=== PATIENT | male | born 1970 | race Caucasian/White ===

== ENCOUNTER 2024-01-17 15:44 | Emergency (ER) | payer MEDICARE, OTHER, SELFPAY ==
--- NOTE | ~2024-01-17 | CT_ITS ---
EXAMINATION: CT cervical spine wo con DATE: 01/17/2024 17:55 INDICATION: Neck pain TECHNIQUE: Computed tomography (CT) of the cervical spine was performed without intravenous contrast. The dose-length product (DLP) was 507.15 mGy-cm. Automated exposure control and iterative reconstruc tion technique were employed. COMPARISON: None FINDINGS: There are changes of anterior fusion at C3-4. Bone alignment is normal. There is no fractur e. There is mild loss of intervertebral disc space height at C5-6 and C6-7. The odontoid process is i ntact. There is multilevel mild facet and uncovertebral joint osteoarthritis. Prevertebral soft tissu es are normal. IMPRESSION: 1. Surgical changes and mild cervical spondylosis without acute findings. Reviewed, dictated and finalized at location F.
--- NOTE | ~2024-01-17 | XR_ITS ---
XR chest 2V 01/17/2024 16:10 Indication: Chest pain Procedure: 2 view chest Comparison: 04/19/2018 Findings: Heart size normal. No focal air space disease, pulmonary edema, pleural effusion or suspect ed pneumothorax. There are innumerable calcified granulomas of the lungs. Impression: 1: No acute cardiopulmonary disease. Reviewed, dictated and finalized at location B. Impression: 1: No acute cardiopulmonary disease.
--- NOTE | 2024-01-17 15:45 | ECG_ITS ---
Measurements Intervals [place] Rate: 95 P: 85 MS: 142 QRS: 77 QRSD: 93 T: 78 QT: 313 QTc: 395 Interpretive Statements SINUS RHYTHM INCOMPLETE RIGHT BUNDLE BRANCH BLOCK NONSPECIFIC ST & T-WAVE ABNORMALITY- DIFFUSE LEADS BASELINE ARTIFACT- I, II, III, AVR, AVL, AVF, V1, V3 BORDERLINE ECG NO PREVIOUS ECG AVAILABLE FOR COMPARISON Electronically Signed On 01-17-2024 16:57:39 CDT by Byron Schwab D.O.
[2024-01-17 15:46] VITALS: BP 136/90; PULSE 97; RESP 18; TEMP 36.4; O2SAT 99
[2024-01-17 16:06] LABS: Hematocrit 42.8 % (42.0-52.0); Hemoglobin 14.3 g/dL (14.0-18.0); Mean Corpuscular HGB Conc 33.4 g/dl (32-36); Mean Corpuscular Hemoglobin 31.7 pg (26-34); Mean Corpuscular Volume 94.9 fl (80-100); Mean Platelet Volume 12.7 fl (7.4-10.4); Platelet Count Result 178 k/mm3 (150-375); Red Blood Count 4.51 M/mm3 (4.6-6.20); Red Cell Distribution Width 11.8 % (11.5-14.5); White Blood Count 9.8 K/mm3 (4.5-10.0)
[2024-01-17 16:22] LABS: INR 0.9; Prothrombin Time 12.6 Seconds (11.1-14.7)
[2024-01-17 16:23] LABS: Partial Thromboplastin Time 30.7 Seconds (22.3-36.8)
[2024-01-17 16:38] LABS: Band Neutrophils Percent 1 % (0-6); Eosinophils Absolute Manual 0.19 K/mm3 (0.02-0.50); Eosinophils Percent Manual 2 % (0-4); Lymphocytes Absolute Manual 2.84 K/mm3 (1.1-4.5); Monocytes Absolute Manual 0.29 K/mm3 (0.1-0.90); Monocytes Percent Manual 3 % (3-9); Neutrophils Absolute Manual 6.46 K/mm3 (1.3-6.7); Neutrophils Percent Manual 65 % (46-73); Total Cells Counted 100
[2024-01-17 16:39] LABS: Atypical Lymphocytes Present; Platelet Estimate Adequate (Adequate); Schistocytes None Seen
[2024-01-17 17:10] VITALS: PULSE 84
--- NOTE | 2024-01-17 17:24 | ED.CHESTPAIN ---
HPI - Chest Pain General Chief Complaint: Chest Pain <Obi Kenny Cisse III, DO - Last Filed: 01/19/24 12:22> Stated Complaint: chest tightness/pain/L arm numb/dizzy <Obi Kenny Cisse III, DO - Last Filed: 01/19/24 12:22> Time Seen by Provider: 01/17/24 17:16 <Obi Kenny Cisse III, DO - Last Filed: 01/19/24 12:22> History of Present Illness HPI narrative: Pt presents with left sided chest pressure with radiation down left arm constantly since last night. Pt says he has all sorts of issues. Pt says he has an autonomic nervous system disorder and is wheelchair bound because he is unsteady n his feet and feels like he is going ot pass out. Pt has CP frequently he says and usually goes to [facility] for his issues. Pt also complains of chronic neck pain and wonders if the chest pain is related. <Obiowen Cox Cisse III, DO - Last Filed: 01/19/24 12:22> Related Data Allergies/Adverse Reactions: Allergies Allergy/AdvReac Type Severity Reaction Status Date / Time No Known Allergies Allergy Verified 01/17/24 17:11 <Obiowen Cox Cisse III, DO - Last Filed: 01/19/24 12:22> Review of Systems Review of Systems: All systems reviewed & are unremarkable except as noted in HPI and below <Obi Kenny Cisse III, DO - Last Filed: 01/19/24 12:22> Exam Const: General: healthy appearing and no acute distress <Obiowen Cox Cisse III, DO - Last Filed: 01/19/24 12:22> Nutritional Appearance: well nourished <Obi Kenny Cisse III, DO - Last Filed: 01/19/24 12:22> Orientation/consciousness: patient oriented x3 <Obi Kenny Cisse III, DO - Last Filed: 01/19/24 12:22> Limitations: no limitations <Obi Kenny Cisse III, DO - Last Filed: 01/19/24 12:22> HENMT: Head: normal to inspection <Obi Kenny Cisse III, DO - Last Filed: 01/19/24 12:22> Eyes: Pupils: Equal, round and reactive pupils present <Obi Kenny Cisse III, DO - Last Filed: 01/19/24 12:22> EOM: EOMs intact bilaterally <Obi Kenny Cisse III, DO - Last Filed: 01/19/24 12:22> Neck: Neck: normal visual inspection, no lymphadenopathy and no meningeal signs <Obi Kenny Cisse III, DO - Last Filed: 01/19/24 12:22> Other: tender with paraspinous muscle spasm <Obi Kenny Cisse III, DO - Last Filed: 01/19/24 12:22> Resp: Effort & Inspection: normal respiratory effort <Obi Kenny Cisse III, DO - Last Filed: 01/19/24 12:22> Auscultation: clear to auscultation bilaterally <Obi Kenny Cisse III, DO - Last Filed: 01/19/24 12:22> Cardio: Rate: regular rate <Obi Kenny Cisse III, DO - Last Filed: 01/19/24 12:22> Rhythm: regular rhythm <Obi Kenny Cisse III, DO - Last Filed: 01/19/24 12:22> GI: GI Palp: Yes Soft to palpation <Obi Kenny Cisse III, DO - Last Filed: 01/19/24 12:22> Auscultation: normal bowel sounds <Obi Kenny Cisse III, DO - Last Filed: 01/19/24 12:22> Skin: General skin exam: normal color <Obi Kenny Cisse III, DO - Last Filed: 01/19/24 12:22> Rashes: no rashes <Obi Kenny Cisse III, DO - Last Filed: 01/19/24 12:22> Wounds: no wounds <Obi Kenny Cisse III, DO - Last Filed: 01/19/24 12:22> Neuro: General: patient oriented x3, moves all extremities, no focal motor deficits and CN's II-XI intact bilaterally <Obi Kenny Cisse III, DO - Last Filed: 01/19/24 12:22> Speech: normal speech <Obi Kenny Cisse III, DO - Last Filed: 01/19/24 12:22> Extrem: General: normal to inspection and no clubbing, cyanosis or edema <Obi Kenny Cisse III, DO - Last Filed: 01/19/24 12:22> Psych: Mental Status: mental status grossly normal <Obi Kenny Cisse III, DO - Last Filed: 01/19/24 12:22> Affect: normal affect <Obi Kenny Cisse III, DO - Last Filed: 01/19/24 12:22> Attitude: cooperative <Obi Kenny Cisse III, DO - Last Filed: 01/19/24 12:22> Course Vital Signs Vital signs: Vital Signs Temperature 97.6 F 01/17/24 15:46 Pulse Rate 97 01/17/24 15:46 Respiratory Rate 18 01/17/24 15:46 Blood Pressure 136/
[2024-01-17 17:36] LABS: Alanine Aminotransferase 22 U/L (6-50); Albumin Level 4.3 g/dL (3.5-5.1); Alkaline Phosphatase 127 U/L (38-126); Anion Gap 7 mmol/L (8-16); Aspartate Amino Transferase 22 U/L (17-59); Bilirubin,Total 0.7 mg/dL (0.2-1.3); Blood Urea Nitrogen 4 mg/dL (9-20); Calcium 9.6 mg/dL (8.4-10.2); Carbon Dioxide 26 mmol/L (22-30); Chloride 102 mmol/L (98-107); Estimated CRCL calculation 124 ml/min; Estimated Glomerular Filt Rate > 60; Glucose 104 mg/dL (65-110); Lipase 83 U/L (23-300); Potassium 3.8 mmol/L (3.4-5.0); Sodium 135 mmol/L (137-145)
[2024-01-17 17:48] LABS: Troponin I < 0.012 ng/mL (0.000-0.034)
[2024-01-17] MEDS: MORPHINE SULFATE (*CRX) 2 MG/ML INJ IV PUSH (18:02)
[2024-01-17 18:14] VITALS: BP 148/95; PULSE 105; RESP 16; O2SAT 95
[2024-01-17 18:15] VITALS: O2SAT 98
--- NOTE | 2024-01-17 18:55 | ECG_ITS ---
Measurements Intervals [place] Rate: 105 P: 70 [place]: 152 QRS: 53 QRSD: 88 T: 71 QT: 343 QTc: 453 Interpretive Statements SINUS TACHYCARDIA VENTRICULAR PREMATURE COMPLEX POSSIBLE LEFT ATRIAL ENLARGEMENT INCOMPLETE RIGHT BUNDLE BRANCH BLOCK NONSPECIFIC ST & T-WAVE ABNORMALITY- ANT/HIGH LAT LEADS BASELINE ARTIFACT- I, III, AVL BORDERLINE ECG COMPARED TO ECG 01/17/2024 15:49:53 SINUS TACHYCARDIA NOW PRESENT Electronically Signed On 01-17-2024 19:37:19 CDT by Byron Schwab D.O.
[2024-01-17 19:27] LABS: Troponin I < 0.012 ng/mL (0.000-0.034)
[2024-01-17 19:29] VITALS: BP 153/95; PULSE 91; RESP 20; O2SAT 95
== END 2024-01-17 20:43 | disposition home or self-care (01) ==
PROVIDERS: Emergency Medicine; Emergency Provider Emergency Medicine
DX: R07.89 Other chest pain (principal); G90.9 Disorder of the autonomic nervous system, unspecified; Z99.3 Dependence on wheelchair; R00.0 Tachycardia, unspecified; I49.3 Ventricular premature depolarization; R94.31 Abnormal electrocardiogram [ECG] [EKG]; I45.10 Unspecified right bundle-branch block
CPT/HCPCS: 36415; 71046; 72125; 80053; 83690; 84484; 85025; 85610; 85730; 93005; 96374; 99284; J2270

== ENCOUNTER 2025-03-26 03:10 | Emergency (ER) | payer MEDICARE, OTHER, SELFPAY ==
[2025-03-26 03:08] VITALS: PULSE 93; RESP 20; TEMP 36.6; O2SAT 100
[2025-03-26 03:14] VITALS: BP 146/60
--- NOTE | 2025-03-26 03:15 | ECG_ITS ---
Test Date: 2025-03-26 03:18:33 Measurements Intervals [place] Rate: 80 P: 61 [place]: 160 QRS: 48 QRSD: 98 T: 67 QT: 386 QTc: 446 Interpretive Statements SINUS RHYTHM INCOMPLETE RIGHT BUNDLE BRANCH BLOCK MODERATE T-WAVE ABNORMALITY, CONSIDER ANTERIOR ISCHEMIA ABNORMAL ECG No previous ECG available for comparison Electronically Signed On 03-26-2025 06:11:56 CDT by Byron Schwab D.O.
[2025-03-26 03:27] LABS: Basophils Percent Auto 0.4 % (0.2-1.2); Eosinophils Absolute Auto 0.2 K/mm3 (0-0.3); Eosinophils Percent Auto 1.6 % (0-4.4); Hematocrit 42.6 % (42.0-52.0); Immature Granulocyte Absolute 0.02 K/mm3 (0.00-0.031); Immature Granulocyte Percent A 0.2 % (0-0.5); Lymphocytes Absolute Auto 3.18 K/mm3 (0.9-3.2); Lymphocytes Percent Auto 34.4 % (18.3-44.2); Mean Corpuscular HGB Conc 32.9 g/dl (32-36); Mean Corpuscular Hemoglobin 29.9 pg (26-34); Mean Platelet Volume 10.8 fl (7.4-10.4); Monocytes Absolute Auto 0.6 K/mm3 (0.1-0.6); Monocytes Percent Auto 6.6 % (2.6-8.5); Neutrophils Absolute Auto 5.2 K/mm3 (1.3-6.7); Neutrophils Percent Auto 56.8 % (45.5-73.1); Platelet Count Result 227 k/mm3 (150-375); Red Blood Count 4.68 M/mm3 (4.6-6.20); Red Cell Distribution Width 14.3 % (11.5-14.5); White Blood Count 9.2 K/mm3 (4.5-10.0)
[2025-03-26 03:33] LABS: Add Urine Microscopic? NO; Appearance Urine Clear (Clear); Bilirubin Urine Negative (Negative); Blood Urine Negative (Negative); Color Urine Yellow (Yellow); Glucose Urine UA Negative (Negative); Ketones Urine Negative (Negative); Leukocyte Esterase Ur Negative LEU/UL (Negative); Nitrate Urine Negative (Negative); Protein Urine Negative (Negative); Specific Grav Ur 1.003 (1.001-1.035); Urobilinogen Urine 0.2 mg/dL (<2.0); pH Urine 5.5 (5.0-9.0)
[2025-03-26 03:39] LABS: Ethanol 166 mg/dL (<10)
[2025-03-26 03:41] LABS: Alanine Aminotransferase 28 U/L (6-50); Albumin Level 4.7 g/dL (3.5-5.1); Alkaline Phosphatase 112 U/L (38-126); Anion Gap 13 mmol/L (4-12); Aspartate Amino Transferase 27 U/L (17-59); Bilirubin,Total 0.3 mg/dL (0.2-1.3); Blood Urea Nitrogen 5 mg/dL (9-20); Calcium 9.7 mg/dL (8.4-10.2); Carbon Dioxide 23 mmol/L (22-30); Chloride 104 mmol/L (98-107); Estimated CRCL calculation 112 ml/min; Estimated Glomerular Filt Rate > 60; Glucose 120 mg/dL (65-110); Potassium 4.3 mmol/L (3.4-5.0); Sodium 140 mmol/L (137-145)
[2025-03-26 03:50] LABS: Amphetamine Screen Urine Negative (Negative); Barbiturate Screen Urine Negative (Negative); Benzodiazepines Screen Urine Negative (Negative); Cannabinoid Screen Urine Negative (Negative); Cocaine Screen Urine Negative (Negative); Methadone Screen Urine Negative (Negative); Opiate Screen Urine Negative (Negative); Phencyclidine Screen Urine Negative (Negative)
[2025-03-26 04:08] LABS: Influenza A QL RT-PCR Negative (Negative); Influenza B QL RT-PCR Negative (Negative); RSV RNA, RT-PCR Negative (Negative); SARS-CoV-2 RNA PCR Negative (Negative)
[2025-03-26 06:04] VITALS: BP 114/68; PULSE 78; RESP 14; O2SAT 92
--- OUTSIDE RECORDS SUMMARY | 2025-03-26 06:07 | XMS_ITS | Encounter Summary ---
Author Organization [facility] Address [address] [place] [address] Phone Care Team Providers Care Plant Hr Manager Name Role Phone MiniJohnny rhoades MD Unavailable Elian Painting MD Unavailable Geno Sifuentes MD Unavailable Chelsi Quiñonez OT Unavailable Unavailable Charisse Ragland OT Unavailable Unavaila Nadia Bustos OT Unavailable Unavailable Monserrat Murillo OT Unavailable Unavailable Richard Nunez DO Primary Care Provider [phone] Gloria Quiros METAL WASHING MACHINE OPERATOR Unavailable Mariya Blood METAL WASHING MACHINE OPERATOR Unavailable Priyanka Calvillo RN Unavailable [phone] Ellie Nascimento METAL WASHING MACHINE OPERATOR Unavailable Krista Burt LPN Unavailable [phone] Pierre Young MD Unavailable Cesar Plata MD Unavailable Encounter Details Date Type Department Care Team (Late st Contact Info) Description 12/25/2019 Telephone [facility] Scheduling [address] [place] [address] Stormy Olivera Social History Tobacco Use Types Packs/Day Years Used Date Smoking Tobacco: Every Day Cigarettes 1.5 30 Smokeless Tobacco: Never Comments:has been working on quitting- plans on smoking last cigarette 07/11/2019 Alcohol Use Standard Drinks/Week Comments Not Currently 0 (1 standard drink = 0.6 oz pure alcohol) Prior alcohol use, quit December 2017 PHQ-2 Answer Date Recorded PHQ-2 Score 0 11/22/2019 Sex and Gender Information Value Date Recorded Sex Assigned at Not on file Legal Sex Male 8:47 AM MEDICAL ASSEMBLY Gender Identity Not on file Sexual Orientation Straight 10/02/2019 2: 43 PM MEDICAL ASSEMBLY documented as of this encounter Plan of Treatment Scheduled Procedures Name Priority Associated Diagnoses Date/Ti me COLONOSCOPY Open Access Screening for colon cancer documented as of this encounter Visit Diagnoses Not on filedocumented in this encounter Additional Health Concerns Infection Onset Date Last Indicated Resolved Time COVID: Suspected 03/15/2020 03/15/2020 03/17/2020 8:53 AM CDT Respiratory Infection (IDALIA), contact + droplet Comment:Automatically added due to negative COVID-19 result. 03/17/2020 03/17/2020 03/31/2020 3:0 5 AM CDT documented as of this encounter Care Teams Plant Hr Manager Relationship Specialty Start Date End Date Richard Nunez DO [address] [place] [address] PCP - General Family Medicine 11/29/19 Johnny Morse MD [address] [place] [address] Consulting Physician Neurosurgery 08/11/19 Elian Painting MD [address] [place] [address] Consulting Physician Neurology 08/11/19 Geno Sifuentes MD [address] [place] [address] Consulting Physician Physical Medicine and Rehabilitation 08/11/19 Chelsi Quiñonez, OT Occupational Therapist Occupational Therapy 09/05/19 Charisse Ragland, OT Occupational Therapist Occupational Therapy 09/07/19 Nadia Goldman, OT Occupational Therapist Occupational Therapy 09/11/19 Monserrat Murillo, OT Occupational Therapist Occupational Therapy 09/19/19 Gloria Quiros, [facility] [address] [place] [address] Axle Bearing Polisher 03/01/20 03/05/20 Mariya Blood, [facility] [address] [place] [address] Axle Bearing Polisher 01/01/21 01/06/21 Priyanka Calvillo, RN [address] [place] [address] Security Advisor 01/01/21 06/25/21 Ellie Nascimento, [facility] [address] [place] [address] Axle Bearing Polisher 01/07/21 02/16/21 Krista Burt, NEWS OPERATIONS MANAGER [address] [place] [address] [address] [place] [address] Security Advisor 01/21/24 01/23/24 Pierre Young MD [address] [address] Consulting Physician Cardiology 10/12/24 Cesar Plata MD [facility] [facility] [facility] [address] [place] [address] Consulting Physician Pain Management 01/09/25 documented as of this encounter
--- OUTSIDE RECORDS SUMMARY | 2025-03-26 06:07 | XMS_ITS | Encounter Summary ---
Author Organization [facility] Address [address] [place] [address] Care Team Providers Care Kosher Sealer Name Role Phone Luis Downey MD Primary Care Provider No, Physician Primary Care Provider [phone] [facility] Care P rovider Naomie Blackwood NP Primary Care Provider [phone] Johnny Morse MD Unavailable Elian Painting MD Unavailable Geno Sifuentes MD Unavailable [phone] Chelsi Quiñonez OT Unavailable Unavailable Charisse Ragland OT Unavailable UnavailNadia Alcantar OT Unavailable Unavailable Monserrat Murillo OT Unavailable Unavailable Richard Nunez DO Primary Care Provider [phone] Gloria Quiros SERVICE CENTER COORDINATOR Unavailable [phone] Mariya Blood SERVICE CENTER COORDINATOR Unavailable [phone] Priyanka Calvillo RN Unavailable Ellie Nascimento SERVICE CENTER COORDINATOR Unavailable Krista Burt LPN Unavailable [phone] Pierre Young MD Unavailable Cesar Plata MD Unavailable Encounter Details Date Type Department Care Team (Late st Contact Info) Description 06/18/2018 Documentation [facility] Case Management [address] [place] [address] Jigna Horvath Social History Tobacco Use Types Packs/Day Years Used Date Smoking Tobacco: Every Day Cigarettes 0.3 30 Smokeless Tobacco: Never Sex and Gender Information Value Date Recorded Sex Assigned at Not on file Legal Sex Male 8:47 AM CLINICAL ADVISOR Gender Identity Not on file Sexual Orientation Straight 10/02/2019 2: 43 PM CLINICAL ADVISOR documented as of this encounter Miscellaneous Notes * Plan of Care - Jigna Horvath, RN - 06/18/2018 3:37 PM CDT Referral received. Patient contacted. [facility] will begin upon patient discharge. Thank you. [facility] [phone]. documented in this encounter Plan of Treatment Scheduled Procedures [...] documented as of this encounter Care Teams Kosher Sealer Relationship Specialty Start Date End Date Luis Downey MD PCP - General 01/15/18 07/19/18 No, Physician PCP - General 07/20/18 05/09/19 [facility], Sabino Haines MD [address] [place] [address] PCP - General 05/10/19 07/10/19 Naomie Blackwood, ANNET[address] [place] [address] PCP - General 07/11/19 11/28/19 Richard Nunez DO [address] [place] [address] PCP - General Family Medicine 11/29/19 Johnny Morse MD [address] [place] [address] Consulting Physician Neurosurgery 08/11/19 Elian Painting MD [address] [place] [address] Consulting Physician Neurology 08/11/19 Geno Sifuentes MD [address] [place] [address] Consulting Physician Physical Medicine and Rehabilitation 08/11/19 Chelsi Quiñonez, OT Occupational Therapist Occupational Therapy 09/05/19 Charisse Ragland, OT Occupational Therapist Occupational Therapy 09/07/19 Nadia Goldman, OT Occupational Therapist Occupational Therapy 09/11/19 Monserrat Murillo, OT Occupational Therapist Occupational Therapy 09/19/19 Gloria Quiros, SERVICE CENTER COORDINATOR [address] [place] [address] Delicatessen Department Manager 03/01/20 03/05/20 Mariya Blood, SERVICE CENTER COORDINATOR [address] [place] [address] Delicatessen Department Manager 01/01/21 01/06/21 Priyanka Calvillo, RN [address] [place] [address] Forestry Adviser 01/01/21 06/25/21 Ellie Nascimento, [place] [address] [place] [address] Delicatessen Department Manager 01/07/21 02/16/21 Krista Burt LPN [address] [place] [address] Forestry Adviser 01/21/24 01/23/24 Pierre Young MD [address] [facility] [address] [place] [address] Consulting Physician Cardiology 10/12/24 Cesar Plata MD [address] [facility] [address] [place] [address] Consulting Physician Pain Management 01/09/25 documented as of this encounter
--- OUTSIDE RECORDS SUMMARY | 2025-03-26 06:08 | XMS_ITS | Encounter Summary ---
Author Organization [facility] Address [address] [place] [address] Care Team Providers Care Attic Fans Mechanic Name Role Phone MiniJohnny MD Unavailable Elian Painting MD Unavailable [phone] Geno Sifuentes MD Unavailable [phone] Chelsi Quiñonez OT Unavailable Unavailable Charisse Ragland OT Unavailable Unavaila Nadia Bustos OT Unavailable Unavailable Monserrat Murillo OT Unavailable Unavailable Richard Nunez DO Primary Care Provider [phone] Pierre Young MD Unavailable Cesar Plata MD Unavailable Encounter Details Date Type Department Care Team (Late st Contact Info) Description 02/24/2024 Telephone [facility] Cardiology [address] [place] [address] Pierre Young MD [address] [facility] [address] [place] [id number] Social History Tobacco Use Types Packs/Day Years Used Date Smoking Tobacco: Every Day Cigarettes 0.8 15.1 Smokeless Tobacco: Never Comments:has been working on quitting- plans on smoking last cigarette 07/11/2019 Alcohol Use Standard Drinks/Week Comments Not Currently 0 (1 standard drink = 0.6 oz pure alcohol) Prior alcohol use, quit December 2017 Social Connection and Isolat ion Panel [NHANES] Answer Date Recorded In a typical week, how many times do you talk on the phone with family, friends, or neighbors? More than three times a week 01/23/2021 How often do you get togethe r with friends or relatives? More than three times a week 01/23/2021 How often do you attend chur ch or hoahaoism services? Never 01/23/2021 Do you belong to any clubs o r organizations such as denominational groups, unions, fraternal or athletic groups, or school groups? No 01/23/2021 How often do you attend meet ings of the clubs or organizations you belong to? Never 01/23/2021 Are you , , di vorced, , never , or living with a partner? Living with partner 01/23/2021 AUDIT-C Answer Date Recorded Q1: How often do you have a drink containing alcohol? Never 02/07/2025 Q2: How many drinks containi ng alcohol do you have on a typical day when you are drinking? Patient does not drink Q3: How often do you have si x or more drinks on one occasion? Never 02/07/2025 PHQ-2 Answer Date Recorded PHQ-2 Total Score (If total score is 3 or more points, staff should administer the PHQ-9) 6 09/10/2024 Hunger Vital Sign Answer Date Recorded Within the past 12 months, y ou worried that your food would run out before you got the money to buy more. Never true 01/24/20 21 Within the past 12 months, t he food you bought just didn't last and you didn't have money to get more. Never true 01/23/2021 Housing Stability Vital Sign Answer Brock e Recorded In the last 12 months, was t here a time when you were not able to pay the mortgage or rent on time? No 01/23/2021 Number of Places Lived in the Last Year Not on f ile 01/23/2021 In the last 12 months, was t here a time when you did not have a steady place to sleep or slept in a long term (including now)? No 01/23/2021 PHQ-9 Answer Date Recorded PHQ-9 Total Score 21 09/10/2024 Personal Safety Answer Date Recorded Have you ever been in or are you currently in a harmful physical or emotional relationship or is someone making you feel afraid or unsafe? Denies 02/25/2024 Sex and Gender Information Value Date Recorded Sex Assigned at Not on file Legal Sex Male 8:47 AM COMPOSITE ENGINEER Gender Identity Not on file Sexual Orientation Straight 10/02/2019 2: 43 PM COMPOSITE ENGINEER documented as of this encounter Functional Status * Audit-C Score Answer Date of Assessment Author 0 02/07/2025 9:58 AM Brady Mays RN * Question Answer Date of Assessment Author Q1: How often do you have a drink containing alcohol? Never 02/07/2025 9:58 AM Maria Antonia Mays RN Q2: How many drinks containing alcohol do you have on a typical day when you are drinking? Patient does not drink 02/07/2025 9:58 AM Maria Antonia Mays RN Q3: How often do you have six or more drinks on one occasion? Never 02/07/2025 9:58 AM Maria Antonia Mays RN documented as of this encounter Plan of Treatment Scheduled Procedures Name Priority Associated Diagnoses Date/Ti me COLONOSCOPY Open Access Screening for colon cancer documented as of this encounter Visit Diagnoses Not on filedocumented in this encounter Care Teams Attic Fans Mechanic Relationship Specialty Start Date End Date Richard Nunez DO [address] [place] [address] PCP - General Family Medicine 11/29/19 Johnny Morse MD [address] [place] [address] Consulting Physician Neurosurgery 08/11/19 Elian Painting MD [address] [place] [address] Consulting Physician Neurology 08/11/19 Geno Sifuentes MD [address] [place] [address] Consulting Physician Physical Medicine and Rehabilitation 08/11/19 Chelsi Quiñonez, OT Occupational Therapist Occupational Therapy 09/05/19 Charisse Ragland, OT Occupational Therapist Occupational Therapy 09/07/19 Nadia Goldman, OT Occupational Therapist Occupational Therapy 09/11/19 Monserrat Murillo, OT Occupational Therapist Occupational Therapy 09/19/19 Pierre Young MD [address] [place] [address] Consulting Physician Cardiology 10/12/24 Cesar Plata MD [address] [address] Consulting Physician Pain Management 01/09/25 documented as of this encounter
--- OUTSIDE RECORDS SUMMARY | 2025-03-26 06:08 | XMS_ITS | Encounter Summary ---
Author Organization [facility] Healthcare Address [address] [place] [address] Care Team Providers Care Cook Helper Name Role Phone MiniJohnny MD Unavailable [phone] Elian Painting MD Unavailable Geno Sifuentes MD Unavailable [phone] Chelsi Quiñonez OT Unavailable Unavailable Charisse Ragland OT Unavailable Unavaila Nadia Bustos OT Unavailable Unavailable Monserrat Murillo OT Unavailable Unavailable Richard Nunez DO Primary Care Provider [phone] Pierre Young MD Unavailable Cesar Plata MD Unavailable Encounter Details Date Type Department Care Team (Late st Contact Info) Description 01/25/2025 Results Follow-Up [facility] Primary Care at [facility] [address] [place] [address] Jessa Kern DNP [address] [facility] [address] [place] [address] PTH Social History Tobacco Use Types Packs/Day Years Used Date Smoking Tobacco: Every Day Cigarettes 0.5 15.1 Smokeless Tobacco: Never Comments:has been working [...] often do you attend chur ch or yazdanism services? Never 01/23/2021 Do you belong to any clubs o r organizations such as moravian groups, unions, fraternal or athletic groups, or school groups? No 01/23/2021 How often do you attend meet ings of the clubs or organizations you belong to? Never 01/23/2021 Are you , , di vorced, , never , or living with a partner? Living with partner 01/23/2021 AUDIT-C Answer Date Recorded Q1: How often do you have a drink containing alcohol? Never 01/17/2025 Q2: How many drinks containi ng alcohol do you have on a typical day when you are drinking? Patient does not drink Q3: How often do you have si x or more drinks on one occasion? Never 01/17/2025 PHQ-2 Answer Date Recorded PHQ-2 Total Score [...] place to sleep or slept in a prison (including now)? No 01/23/2021 PHQ-9 Answer Date Recorded PHQ-9 Total Score 21 09/10/2024 Personal Safety Answer Date Recorded Have you ever been in or are you currently in a harmful physical or emotional relationship or is someone making you feel afraid or unsafe? Denies 02/25/2024 Sex and Gender Information Value Date Recorded Sex Assigned at Not on file Legal Sex Male 8:47 AM [employer] Gender Identity Not on file Sexual Orientation Straight 10/02/2019 2: 43 PM [employer] documented as of this encounter Plan of Treatment Scheduled Procedures Name Priority Associated Diagnoses Date/Ti me COLONOSCOPY Open Access Screening for colon cancer documented as of this encounter Visit Diagnoses Not on filedocumented in this encounter Care Teams Cook Helper Relationship Specialty Start Date End Date Richard Nunez DO [address] [facility] [address] [place] [address] PCP - General Family Medicine 11/29/19 Johnny Morse MD [address] [facility] [address] [place] [address] Consulting Physician Neurosurgery 08/11/19 Elian Painting MD [address] [facility] [address] [place] [address] Consulting Physician Neurology 08/11/19 Geno Sifuentes MD [address] [facility] [address] [place] [address] Consulting Physician Physical Medicine and Rehabilitation 08/11/19 Chelsi Quiñonez, OT Occupational Therapist Occupational Therapy 09/05/19 Charisse Ragland, OT Occupational Therapist Occupational Therapy 09/07/19 Nadia Goldman, OT Occupational Therapist Occupational Therapy 09/11/19 Monserrat Murillo, OT Occupational Therapist Occupational Therapy 09/19/19 Pierre Young MD [address] [facility] [address] [place] [address] Consulting Physician Cardiology 10/12/24 Cesar Plata MD [address] [address] [place] [id number] Consulting Physician Pain Management 01/09/25 documented as of this encounter
--- OUTSIDE RECORDS SUMMARY | 2025-03-26 06:08 | XMS_ITS | Clinical Summary ---
Author Organization [facility] Address [facility] access [address] [place] [address] Care Team Providers Care Process Treater Name Role Phone MiniJohnny MD Unavailable Elian Painting MD Unavailable Geno Sifuentes MD Unavailable [phone] Chelsi Quiñonez OT Unavailable Unavailable Charisse Ragland OT Unavailable Unavaila Nadia Bustos OT Unavailable Unavailable Monserrat Murillo OT Unavailable Unavailable Richard Nunez DO Primary Care Provider [phone] Pierre Young MD Unavailable Cesar Plata MD Unavailable Allergies Active Allergy Reactions Criticality Noted Date Comments Amitriptyline Other (See comments) Medium 06/17/2020 Doxycycline Stomach upset Low 06/17/2020 Medications cyanocobalamin (Vitamin B-12) 1,000 mcg tabletIndicatio ns:Prevention of Vitamin B12 Deficiency Take 1 tablet (1,000 mcg total) by mouth daily 30 tablet 08/11/20 19 Active fluticasone propionate (FLONASE) 50 mcg/actuation nasal spray Administer 2 sprays into each nostril daily 16 g 5 02/16/20 24 Active aspirin 81 mg enteric coated tablet Take 1 tablet (81 mg total) by mouth daily 30 tablet 11 02/23/20 24 Active acetaminophen 500 mg capsule Take 2 capsules (1,000 mg total) by mouth every 6 (six) hours as needed for mild pain (pain scale 1-4) Active loratadine-pseu doephedrine (CLARITIN-D 24-hour) 10-240 mg per 24 hr tablet Take 1 tablet by mouth daily 30 tablet 11 08/17/20 24 025 Active clopidogreL (PLAVIX) 75 mg tablet TAKE 1 TABLET BY MOUTH DAILY 90 tablet 1 10/09/20 24 Active tiotropium (SPIRIVA) 18 mcg per inhalation capsule Place 1 puff (1 capsule total) into inhaler and inhale daily 90 capsule 3 12/18/19 25 026 Active budesonide-form oteroL (SYMBICORT) 160-4.5 mcg/actuation inhaler Inhale 2 puffs 2 (two) times a day Rinse mouth with water after use. Do not swallow. 1 each 12/18/19 25 Active metoprolol XL (TOPROL-XL) 50 mg extended release tablet TAKE 1 TABLET EVERY DAY 90 tablet 1 01/12/[address] (CYMBALTA) 20 mg capsuleIndicati ons:Recurrent major depressive disorder, in partial remission TAKE 4 CAPSULES EVERY NIGHT 360 capsule 1 01/12/[address] (PROTONIX) 40 mg EC tabletIndicatio ns:Gastroesopha geal reflux disease without esophagitis TAKE 1 TABLET (40 MG TOTAL) BY MOUTH DAILY 100 tablet 3 03/01/20 25 025 Active atorvastatin (LIPITOR) 40 mg tablet Take 1 tablet (40 mg total) by mouth daily 90 tablet 1 03/02/20 25 Active atorvastatin (LIPITOR) 40 mg tablet Take 1 tablet (40 mg total) by mouth daily 30 tablet 11 02/23/[address] (PROTONIX) 40 mg EC tabletIndicatio ns:Gastroesopha geal reflux disease without esophagitis Take 1 tablet (40 mg total) by mouth daily 90 tablet 1 09/15/20 24 025 Discontinued Active Problems Problem Noted Date Diagnosed Date Screening for colon cancer 09/15/2024 Cervical stenosis of spine 07/24/2024 Assessment & Plan (07/26/2024 10:09 AM CDT): 07/18: S/P cervical fusion at C3/4. Last MRI showed : Residual cervical spondylosis superimposed on a congenitally narrow cervical spinal canal resulting in up to moderate spinal canal stenosis at C3-C4 and severe right neuroforaminal narrowing at C4-C5.moderate canal stenosis in cervical spine. Will refer to pain management (Ismael) and back to neurosurgery (Dr. Murray) Requesting scooter to assist with ADLs - has wheelchair due to his weakness hard to roll himself. He is not stable enough to use a walker or cane. Does have enough hand strength to use a scooter control. Is able to sit upright for hours at a time. Coronary artery disease invo lving burns [place] coronary artery of [place] heart with unstable angina pectoris 02/23/2024 Gastroesophageal reflux disease without esophagi tis 01/12/2023 Assessment & Plan (01/12/2023 9:00 PM CDT): Continue with current medication, discussed lifestyle modifications Parathyroid abnormality 01/06/2022 Assessment & Plan (01/12/2023 9:01 PM CDT): Recheck parathyroid hormone Obstructive sleep apnea 01/06/2022 Assessment & Plan (01/06/2022 3:59 PM CDT): He [facility] with [facility] the [place] [facility]. I do not recommend using recalled machine. Referred patient to sleep medicine at [facility] to obtain replacement machine. Family history of colon cancer 01/06/2022 Assessment & Plan (01/12/2023 9:00 PM CDT): Father previously diagnosed with colon cancer, sister with rectal cancer. Needs colonoscopy, order placed Assessment & Plan (01/06/2022 3:59 PM CDT): Father with colon cancer twice and sister currently with bladder and colon cancer. Patient has not had colon screening. Cologuard ordered for patient. COPD (chronic obstructive pulmonary disease) 06/2021 Assessment & Plan (01/28/2024 8:28 AM CDT): Pt requesting Spiriva as it worked better for him in the past than the symbicort for his COPD symptoms - sent Assessment & Plan (12/14/2022 8:58 PM COMMUNITY OUTREACH SPECIALIST): Overall symptoms are minimal. Continue with current therapy Assessment & Plan (01/06/2022 3:49 PM CDT): Mild emphysematous changes noted on CT chest December 2019. Symbicort 2 puffs BID. Had normal PFT and was evaluated by Dr. Corrales. Was recommended to quit smoking. Assessment & Plan (04/02/2021 1:00 PM CDT): Mild emphysematous changes noted on old CT chest from December of 2019. Has chronic shortness of breath. Activity is limited due to this and from postural tachycardia syndrome. He is following with Dr. Corrales of pulmonology and will have PFT and TTE. POTS (postural orthostatic tachycardia syndrome) 04/02/2021 Assessment & Plan (01/27/2024 3:48 PM CDT): Previously treated through Dr. Cox - did not have good experience Assessment & Plan (01/06/2022 3:56 PM CDT): Severe POTS. Follows with Dr. Cox and was started on fludrocortisone 0.1mg in May of 2021 with minimal improvement. Also on midodrine for BP support at 5mg TID. Blood pressure is stable. Patient complaints of palpitations, inability to control body temperature, erratic bowel pattern with fluctuation from constipation to incontience. He is using compression stockings and staying hydrated, having adequate amt of salt. Discussed that treatment of POTS is supportive. Recommend increase on metoprolol from 25mg to 50mg daily. Follow up in six weeks. Monitor BP. If BP becomes too low with this change but palpitations improve, could adjust midodrine. In past we discussed getting a hospital bed so he could adjust his HOB as needed for dizziness. He told me to wait on putting the order in as he does not have enough help right now and he'll let me know if he changes his mind about it. Assessment & Plan (04/02/2021 1:11 PM CDT): Symptoms are severe. Does not tolerate walking even a couple of feet. He is noticing muscle atrophy from not moving around as much. He feels frustrated that he is always sick, feels dizzy, and has heart racing spells. I recommend he complete outpatient physical therapy such as intensive outpatient therapy day program with vital sign monitoring to try and build his activity tolerance. Additionally, due to severe POTS, I recommend patient have a semi electric hospital bed. He requires HOB to be higher than 30 degrees and easy change of the position of HOB. He is not able to achieve level of comfort or to improve his dizziness in current bed. He also requires a hospital bed as he needs to transfer from a wheelchair into the bed. Low serum cortisol level 04/25/2020 Assessment & Plan (05/15/2020 4:50 PM CDT): -his serum cortisol level was low while taking prednisone. -cortisol level has improved to 8.9 off of prednisone. -he reports dizziness, episodes of intermittent low blood pressure. No other symptoms of adrenal insufficiency. -recommend checking a.m. cortisol one more time to make sure his levels are within normal limits. -if his a.m. cortisol is within normal limits, do not recommend corticosteroid replacement. -he is on amlodipine 2.5 mg oral daily consider stopping if his blood pressure is on the lower side. Assessment & Plan (04/25/2020 8:56 PM CDT): Patient with a remarkably low cortisol level. Uncertain of the exact relevance of this particular piece of data as patient has been on a prolonged steroid taper, this could certainly be iatrogenic, but would not expected to be this dramatic. Patient is to finish his prolonged steroid taper, last dose will be next Wednesday. I recommend 1 week after that repeating his cortisol level, will also get renewed, aldosterone and ACTH level. If cortisol is persistently low will also than order a ACTH stim test. Discussed with patient the clinical implications of this test today, certainly could be that his symptoms are related to adrenal insufficiency which would explain why with steroids he feels remarkably better, has better energy in his blood pressure is markedly better. I have placed a referral for him to see endocrinology, suspect that he will not be able to get in until after of completed further testing. In any case if he gets in sooner that is ideal. Patient was given very strict return precautions. He verbalized understanding. Vitamin B12 deficiency 01/03/2020 Assessment & Plan (01/12/2023 9:01 PM CDT): Continue supplement, recheck B12 of Assessment & Plan (01/03/2020 1:50 PM CDT): History of B12 deficiency and formerly on B12 injections. Recommend checking B12 injections and if again low, will restart with once monthly injections. He is taking oral B12. Cervicalgia 11/22/2019 Overview (01/28/2024): 01/14: MRI: IMPRESSION: 1. Postoperative changes of ACDF at C3-C4. The integrity of the hardware is not well assessed on MRI. 2. Residual cervical spondylosis superimposed on a congenitally narrow cervical spinal canal resulting in up to moderate spinal canal stenosis at C3-C4 and severe right neuroforaminal narrowing at C4-C5. Aside from progression of degenerative disc disease at C4-C5 and C6-C7, the overall constellation of spondylotic findings is similar to the prior exam of 12/22/2019. 02/15: Today reports severe pain down the left arm and into the chest. Was incont of urine prior to ER visit - not currently. Did have a fall in the last year. CT in ER did not show new changes. Assessment & Plan (07/24/2024 11:46 AM CDT): Today reports has been using a neck brace and would like a scooter to help him get around. Not stable enough to use a walker. Reports tightening in the upper back and neck. Will try muscle relaxer. Refer to pain management. Zip: [id number] - wants to find someone closer to home. Assessment & Plan (02/11/2024 1:34 PM CDT): Longstanding issues with cervicalgia, most recent CT scan is not dramatically different than previous. Doubtful that this is contributing significantly to his symptoms but certainly could be part of the multifactorial process. Okay to use Tylenol. I do recommend discontinuation of gabapentin as this has likely exacerbated some of his autonomic symptoms Assessment & Plan (01/28/2024 8:28 AM CDT): Ongoing - consider updated MRI after cardiac evaluation Assessment & Plan (01/12/2023 8:58 PM CDT): Known diagnosis, status post previous anterior cervical fusion, has worsening lower extremity weakness, upper extremity weakness. Worsening pain. Patient requesting 2nd opinion, referral placed to neuro surgery/Ortho Spine. Assessment & Plan (12/14/2022 8:57 PM COMMUNITY OUTREACH SPECIALIST): Patient with known severe cervical spinal stenosis status post previous surgical intervention. Continues to have symptoms of weakness and numbness/tingling in bilateral upper and lower extremities, last MRI in 2019. Will get x-rays today, repeat MRI ordered. Further plan pending results. Suspect that some degree of autonomic dysfunction may be related to his severe spinal canal stenosis Assessment & Plan (02/17/2022 12:18 PM CDT): C spine surgery [address] Murray and abnormal MRI even after surgery. Repeat surgery was not recommended by Dr. Murray. Patient has left posterior neck pain and L shoulder pain. He can use as needed tylenol or Aleve once daily. Can do topical voltaren gel or Icy Hot. We discussed using gabapentin but I fear this would increase his fatigue which is already a significant issue. Assessment & Plan (04/02/2021 12:55 PM CDT): Had cervical spine surgery in [address] Murray and abnormal MRI even after surgery. Repeat surgery was not recommended by Dr. Murray. Assessment & Plan (01/01/2021 1:13 PM COMMUNITY OUTREACH SPECIALIST): Cervical spine surgery [address] Murray and had abnormal MRI even after surgery. Repeat procedure was not recommended by Dr. Murray. Assessment & Plan (10/08/2020 10:40 AM COMMUNITY OUTREACH SPECIALIST): June 2019 had cervical spine surgery with Dr. Murray. MRI cervical spine still markedly abnormal after surgery but repeat surgical intervention not recommended by his surgeon. Was recommended to have second opinion with neurosurgery, Dr. Enriquez. Patient waiting to repeat MRI of entire spine prior to seeking second opinion. Assessment & Plan (07/23/2020 2:26 PM CDT): The patient has cervical spine surgery last year. Since now he seems to have muscle spasms through the thorax as a result of the cord injury. I am going to give him baclofen 10 mg b.i.d. to reduce these muscle spasms. We can titrate to effect depending on his tolerance. I will see him back in approximately 3 months. This was a telemedicine visit with Mr. Varela which took place via phone. During the visit, I was located in my office and the patient was located at home. The patient visit started at 2:00 p.m. and ended at 2:26 p.m.. The patient has been informed that the visit may not be secure and acknowledged the information. I have explained the option of participating in a telephone or video visit during the [facility] emergency to the patient. After being given an opportunity to ask questions about and discuss this type of visit, the patient verbally consented to proceeding with the telephone/video visit. The patient understands that this service replaces an office visit and they may be billed and/or responsible for any applicable copayments. @SIGENC2@ @MS@ Assessment & Plan (05/31/2020 4:23 PM CDT): Patient with significant changes noted on his MRI of his C-spine, had surgical intervention and cervical decompression completed in June of last year but his symptoms have worsened. Patient was seen by neuro surgery (Dr. smith) who recommended no further intervention. Patient would like a 2nd opinion I think this is certainly reasonable, he was referred to Dr. Enriquez Assessment & Plan (01/19/2020 1:40 PM CDT): S/p C3-C4 ACD fusion with Dr. Murray 07/24/19. Was improving after surgery but worsened around [place] time. Autonomic symptoms increased and he had more significant L arm weakness. Severe L C3-C4 foraminal stenosis was seen on Nov 2019 cervical MRI. Fredy has sent a message to his neurosurgeon who told him he will discuss the results with him in upcoming months. He mentioned a possible surgery, but Fredy was not exactly sure. Assessment & Plan (01/03/2020 1:49 PM CDT): S/p C3-C4 ACD fusion with Dr. Murray Jul 24, 2019. He'd been doing well after surgery, but felt progress was stalled around [place] time when autonomic symptoms worsened. He's currently unable to stand without support and has significant spasticity with trying to stand. He's on baclofen. Severe L C3-C4 foraminal stenosis was found on Nov 2019 cervical MRI ordered by Dr. Painting. I discussed with Dr. Nunez. Recommend that patient follow up with Dr. Murray and bring copy of prior MRI from [facility]. Assessment & Plan (11/22/2019 10:08 AM COMMUNITY OUTREACH SPECIALIST): Patient with previous noted cervical myelopathy, status post C4/[address] murray in June. Patient was making significant progress in his therapy until mid September when his autonomic symptoms seem to have worsened. He is utilizing wheelchair today, at home utilizes a cane. Continue with physical therapy and occupational therapy, follow-up with [facility] as scheduled. Patient was seen by Neurology and an MRI of the cervical spine was ordered given his right upper extremity weakness, I agree with this plan. Will contact patient with results once available. Memory loss 11/20/2019 Assessment & Plan (11/20/2019 12:20 PM COMMUNITY OUTREACH SPECIALIST): The patient complains of memory loss. I have a feeling that is probably more a concentration/attentional issue. I am going to order neuro psychological testing to be done. I will see him back thereafter. Autonomic dysfunction 11/20/2019 Overview (01/28/2024): 12/14: Worsened on of last week. BP up and down - all other complaints continue - see Dr. Nunez's note from 11/22/19 - CP today. EKG no acute findings. Increased droxidopa to 200 mg TID. 02/15: Today reporting having problems when upright too long - did have a fall last year and wonders if his cervical spinal disease has worsened. Updated CT in ER does not show fracture or problems with existing hardware. Assessment & Plan (07/24/2024 11:44 AM CDT): Gabapentin stopped as it was felt to be making AD worse. States he currently spends more than half of his day in bed as he feels better laying down Assessment & Plan (02/11/2024 1:34 PM CDT): Continues to have issues with significant postural orthostasis/lightheadedness. Patient has previously been seen by multiple different providers and subspecialists, ultimately was following with neuromuscular subspecialists but he has not seen them in quite some time. There was concern about potential CSF leak and they did a blood patch which was not beneficial. I strongly encouraged him to consider following up with Neuromuscular Medicine. He does have a CT coronary angiography scheduled which is very reasonable to assess for potential cardiovascular disease, though his symptoms have been ongoing for quite some time and I suspect is more likely related to his autonomic dysfunction which remains severe. I recommend he discontinue gabapentin as this seems to have exacerbated his symptoms. In truth, it is very difficult to assess this via telemedicine and he is encouraged to make in-person appointments and [place] finding a provider in [place] Assessment & Plan (01/28/2024 8:18 AM CDT): Having problems again when upright too long. Off corticoids. Had a fall last year. CT done in ER shows: 1. No acute fracture within the cervical spine. 2. Solid C3-4 fusion without sign of hardware or fusion failure 3. Multilevel degenerative disc disease with anterolisthesis of C4-C5. No longer working with Dr. Cox. Will discuss with PCP. Compression socks may help Assessment & Plan (12/14/2022 8:57 PM COMMUNITY OUTREACH SPECIALIST): Patient with longstanding issues with autonomic dysfunction, previously seen by a specialist through [facility], has not followed up since May of 2021, he was encouraged to make a follow-up appointment. Is now off of minora corticoids, did not feel that they were particularly beneficial. Certainly possible that his symptoms are at least worsened by his known severe cervical stenosis and previous instrumentation. Will get updated MRI. Return precautions given Assessment & Plan (02/17/2022 12:12 PM CDT): This continues to be the crux of his problems. Trouble with temperature regulation, positional orthostasis, palpitations, nausea. His metoprolol was increased at time of last OV and it did not help. He has seen neuromuscular specialist Dr. Cox at [facility]. He's frustrated by lack of improvement despite different interventions he's tried over the years. He will follow up with neuromuscular PA/[employer] if needed in future. Assessment & Plan (01/01/2021 1:18 PM COMMUNITY OUTREACH SPECIALIST): Since I have met him, Fredy has struggled with his autonomic dysfunction. Has trouble with temperature regulation, orthostasis with position changes, palpitations, and feeling nauseated and flu-like. I have given him zofran for nausea. I recommend he continue the metoprolol as it has been helpful for reducing palpitaions and regulating his HR. I will order him a hospital bed for home so he can use it to gradually adjust position of bed and reduce incidence of orthostatic hypotension. I do recommend he think about doing cardiac rehab so he can improve his activity tolerance and do so in a monitored setting. ACO referral has been placed so he can meet with social worker psychiatric to help him with placement as he needs some additional care. Assessment & Plan (11/17/2020 9:17 PM COMMUNITY OUTREACH SPECIALIST): Patient with known autonomic dysfunction, follows with a specialist (Dr. Cox). Recently started on midodrine, seems to have improved his symptoms a bit, his blood pressure is more stable. Did not Northera due to cost of medication. Patient is scheduled to see autonomic dysfunction specialist next month. Discussed use of benzodiazepines extensively today, would recommend continue with BuSpar and gradually increasing dose with a goal of treating anxiety as patient does seem to have this daily, I do not feel that frequent use of benzodiazepines will help with his symptoms of lightheadedness and fatigue. It may give him some brief respite from anxiety but overall this is a port treatment choice and we should be using something with less addictive potential Assessment & Plan (11/05/2020 10:33 AM COMMUNITY OUTREACH SPECIALIST): The patient is a 49-year-old gentleman with POTS. I have written MRI a prescription for Northera that has now been approved by his insurance company. Unfortunately he has not picked the medication my office filled out a prior authorization and got a covered for 3 months. From August 25 to November 25. As 2 and half of those months have now gone by without him getting the prescription, I encouraged him to move quickly so that we can see if that will improve his functional status. With regard to further treatment of POTS, it may be worthwhile to see cardiology. I will see him back in a few months.. This was a telemedicine visit with Mr. Varela which took place via telephone. During the visit, I was located in my office and the patient was located at home. The patient visit started at 10:15 a.m. and ended at 10:30 a.m.. The patient has been informed that the visit may not be secure and acknowledged the information. I have explained the option of participating in a telephone or video visit during the [facility] emergency to the patient. After being given an opportunity to ask questions about and discuss this type of visit, the patient verbally consented to proceeding with the telephone/video visit. The patient understands that this service replaces an office visit and they may be billed and/or responsible for any applicable copayments. @SIGENC2@ @MS@ Assessment & Plan (10/08/2020 10:37 AM COMMUNITY OUTREACH SPECIALIST): This continues to make him feel poorly. He was taken off of fludrocortisone and started on midodrine 5mg TID. BP is 105 systolic and drops to 90 systolic with exercise. Recommend increase on midodrine to 10mg TID which is maximum dose for midodrine. He can also stop amlodipine which may be lowering pressure some. Follow up in one month. Assessment & Plan (07/23/2020 2:25 PM CDT): The patient is a 49-year-old gentleman with a history of cervical cord injury now with autonomic insufficiency. He has a tilt-table test scheduled in early August and has been evaluated by Dr. Cox. Unfortunately, he has essentially failed fludrocortisone and midodrine. I am going to send back in Northera 200 mg t.i.d. for his labile blood pressures. Assessment & Plan (05/31/2020 4:23 PM CDT): Persistent symptoms, did much better on corticosteroids. Overall uncertain etiology, has appointment with a autonomic specialist later this month. Patient overall did very well on prednisone, but would prefer to keep him off of this long-term, will start him back on fludrocortisone at a lower dose and keep a close watch on his blood pressure. He will also then have more information when he follows up with the autonomic specialist. Assessment & Plan (04/17/2020 10:28 AM CDT): Patient is overall fairly stable at this time. His nausea and vomiting has resolved since being in the ER, abdominal pain has essentially been stable. Abdominal exam is unremarkable at this time. Ultimately his exam with the exception of him feeling very weak is relatively unremarkable, his muscle strength is appropriate. He does have some balance issues but overall if he takes his time is able to move fairly well. Will obtain labs to screen for autoimmunity, Sjogren's, looking at ESR and CRP. If either of these are elevated could consider a course of a steroid taper as this may help with his symptoms. Overall I am glad that he is getting an appointment to see an autonomic dysfunction specialist as would very much like their input. If these labs are completely unremarkable could consider a trial again of fludrocortisone at a lower dose with close monitoring of his blood pressure. Patient verbalized understanding. Assessment & Plan (04/08/2020 10:25 PM CDT): Patient reports persistent symptoms of fatigue and difficulty with motivation. He reports that he has been ambulating around bit but for the most part is using an assisted device either a cane or walker. Continues to have some nausea but feels that his abdominal pain is overall better controlled. He feels like he has some degree of control over his bladder, this is certainly improved on the prednisone. He continues to have significant complaints of nasal congestion which seemed to be a recurring theme during our conversation today. Patient is optimistic about his visit with autonomic dysfunction specialist at [facility] and June. He continues on his steroid taper and is overall doing well, will plan to continue this taper to 1 and half tabs once a day for 7 days then 1 tab per day for 7 days followed by half a tab. Would then like to complete evaluation of his baseline cortisol levels, an order has been placed. Will contact patient with results. Depending on how he does off of steroids may consider restarting fludrocortisone at a lower dose than previous with close follow-up. Ultimately I am optimistic regarding his visit with the autonomic specialist. Assessment & Plan (03/22/2020 9:22 AM CDT): Patient is now been on 60 mg of prednisone a day for the last 10 days, overall all of his symptoms have improved to a significant degree, his blood pressure is also much improved. Patient is scheduled to see autonomic nerve dysfunction specialist in June of this year. He is anxious to have this appointment. In discussion with him today we talked a little bit more about his workup that was done a Jefry antunez prior to establishing care with us, it is unclear if he has ever had his cortisol level checks or ever had any workup for adrenal insufficiency. I will reach out to her die cast technician to see about testing for this while on prednisone, but I would like to rule this out given how well he feels on corticosteroids. Assessment & Plan (03/15/2020 10:16 AM CDT): Overall unchanged from previous. Patient started on prednisone per our last discussion on Wednesday afternoon, despite this medication he has had essentially no change in symptoms. Continues to feel weak. The patient plans to follow-up with autonomic dysfunction specialist, he is pending getting set up for an appointment. Consult has been placed, patient will follow-up with them. Will discuss further with patient next Wednesday. Assessment & Plan (01/23/2020 11:05 AM CDT): The patient is a 49-year-old gentleman who has a history of cervical spine stenosis who underwent surgery last year. Later he developed what looks like autonomic instability. He has GI issues along with a neurogenic bladder. He has difficulty ambulating. He has increasing right arm weakness. His cervical spine MRI does not show myelomalacia. We have him scheduled to see Dr. Cox for autonomic nervous system testing in May. I am also going to obtain a brain MRI to make sure were not missing on alternative etiologies such as multiple sclerosis. I will see him back in the summer after the Coronavirus pandemic has resolved. This visit was conducted using an interactive audio communication system. Assessment & Plan (01/19/2020 1:36 PM CDT): Significant autonomic dysfunction secondary to cervical myelopathy. Feels hot and cold and intermittently dizzy and nauseated. He is going to follow up with his neurosurgeon Dr. Murray to discuss MRI results once COVID 19 pandemic is more contained. Continue midodrine 10mg TID. Assessment & Plan (01/03/2020 1:41 PM CDT): Significant autonomic dysfunction related to cervical myelopathy. He's having a hard time tolerating the feeling of nausea constantly, feeling hot and cold and intermittently dizzy. Recommend he follow up with his surgeon to discuss findings of most recent cervical MRI from end of November. Continue with midodrine 10mg TID. BP is stable today between 110-120 systolic by my check. Assessment & Plan (12/13/2019 1:35 PM COMMUNITY OUTREACH SPECIALIST): EKG today: no acute findings. Reached out to Dr. Painting about increasing the dose of droxidopa - Will increase dose to 200 mg three times per day Will get additional lab testing Call Dr. Painting for earlier f/u apt Assessment & Plan (11/22/2019 10:06 AM COMMUNITY OUTREACH SPECIALIST): Patient with multiple symptoms including intermittent sweating, GI dysfunction, intermittent palpitations/bradycardia, labile blood pressure. Agree that this does seem to be related to autonomic dysfunction. Patient was previously on fludrocortisone but had significant hypertension. He was seen by Neurology earlier this week and was started on a dopamine agonist, has been taking for about a day and half. Recommend that he continue with current therapy for now, if not improving with the dopamine agonist could consider other variations of treatment including going back to a low-dose fludrocortisone. Had a long discussion with patient regarding autonomic dysfunction, discussed that it will be frustrating as we continue to work with this to try to find works well for him. He verbalized understanding. In the interim I recommend that he continue to work on physical and occupational therapy. I also recommend that he [facility] of his disability rating Assessment & Plan (11/20/2019 12:19 PM COMMUNITY OUTREACH SPECIALIST): Based on the patient's symptoms I strongly believe that he has autonomic dysfunction likely from the cervical spine issue. As such she has labile blood pressures resulting in presyncope and syncopal episodes. I am going to try the patient on trucks a dopa 100 mg 3 times a day to see if this will reduce those episodes. I have asked of watch his blood pressure closely. We may have to try to decrease that dose if we have too much hypertension as a side effect. Current smoker 05/12/2019 Assessment & Plan (02/17/2022 12:19 PM CDT): Start wellbutrin 75mg daily for one week, then increase to twice daily. This may also help treat anxiety. Can also use nicotine gum to help him quit. Assessment & Plan (01/19/2020 1:37 PM CDT): Smokes 5-6 cigarettes per day. Recommend he work on quitting smoking. Assessment & Plan (11/22/2019 10:08 AM COMMUNITY OUTREACH SPECIALIST): 1/3 to 1/2 pack per day. Has been smoking for about 20 years. Previously quit but with everything this been going on the restarted. Discussed the benefits of cessation and the drawbacks of continued smoking, he verbalized understanding plans to continue at this time. History of alcohol abuse 06/17/2018 Assessment & Plan (01/28/2024 8:29 AM CDT): States he quit drinking again in October 2023 Assessment & Plan (01/01/2021 1:15 PM COMMUNITY OUTREACH SPECIALIST): Alk phos elevated on labs. To recheck LFTs in one month. Assessment & Plan (06/18/2018 8:50 AM CDT): Denies any use since December 2017, but had heavy use prior. -Ethanol level <10.0 -Cessation encouraged. Assessment & Plan (06/17/2018 10:11 AM CDT): Denies any use since December 2017, but had a heavy use prior -Ethanol level <10.0 -Cessation encouraged. Assessment & Plan (06/17/2018 4:23 AM CDT): Denies any use since December 2017, but had a heavy use prior -Ethanol level & UDS pending Depression 06/17/2018 Assessment & Plan (01/06/2022 3:53 PM CDT): Continues on cymbalta 80mg at HS. Continues to be frustrated by lack of improvement in his health. Has not tolerated cymbalta at higher doses in past. Assessment & Plan (01/01/2021 1:19 PM COMMUNITY OUTREACH SPECIALIST): He was unable to tolerate cymbalta at doses higher than 60mg daily. He asked repeatedly for alprazolam but Dr. Nunez and I feel this is dangerous for him to take because it is habit forming and will make him more tired. He can use hydroxyzine 25mg up to twice daily as needed for acute anxiety. Would like him to joint [facility] support group and provided him information on this. Assessment & Plan (10/08/2020 10:42 AM COMMUNITY OUTREACH SPECIALIST): He continues on cymbalta 60mg daily. Still has severe anxiety. Dr. Cox wanted us to talk with Fredy about shorter acting anxiolytic. I will discuss with Dr. Nunez if he would benefit from as needed alprazolam or if we can use something like buspar instead. Assessment & Plan (01/03/2020 1:34 PM CDT): Depression significant. Anxiety also present. Increase cymbalta from 40mg to 60mg daily. Follow up in six weeks. Assessment & Plan (11/22/2019 10:09 AM COMMUNITY OUTREACH SPECIALIST): Chronic issue, seems to be worsening with the worsening of his autonomic symptoms. Continue with Cymbalta. Could consider referral to Psychology though patient is hesitant about this at this time. Return precautions given Assessment & Plan (06/17/2018 10:11 AM CDT): Previously on Mirtazapine and Amitriptyline, but off all medications currently. Denies depressed mood or any SI/HI. -Restart amitriptyline. -Will need outpatient psych follow-up (already established) Assessment & Plan (06/17/2018 4:26 AM CDT): Previously on Mirtazapine and Amitriptyline, but off all medications currently -denies any SI or HI currently -Will need outpatient psych follow-up (already established) Polyneuropathy 01/28/2018 Overview (01/28/2024): 02/15: recent worsening of the left arm - trying gabapentin Assessment & Plan (07/24/2024 11:46 AM CDT): Pain in both arms and down the back. Assessment & Plan (01/27/2024 3:02 PM CDT): Start gabapentin 100 mg three times per day along with Tylenol 1000 mg Multiple head injury 06/07/2017 Asymmetrical sensorineural hearing loss 11/28/19 16 Resolved Problems Problem Noted Date Diagnosed Date Resolved Date Other chest pain 01/28/2024 09/15/2024 Overview (02/22/2024): 02/15: CTA shows: Multifocal areas of coronary artery atherosclerotic disease including severe stenosis in the mid left anterior descending coronary artery and moderate to severe stenosis in the distal right coronary artery. Coronary calcium score of 123 (>90th percentile). Referred to Dr. Yin Screening for malignant neoplasm of colon 01/12/2023 01/12/2023 Overview (01/12/2023): Added automatically from request for surgery [id number] Screening for malignant neoplasm of colon 01/12/2023 02/12/2023 Overview (01/15/2023): Added automatically from request for surgery [id number] Hoarseness of voice 12/14/2022 02/13/20 23 Assessment & Plan (01/12/2023 9:01 PM CDT): Persistent hoarseness, previously given an ENT referral, he has not yet called to schedule an appointment. Symptoms persist. Uncertain of exact etiology. Needs ENT evaluation given chronicity of symptoms Assessment & Plan (12/14/2022 8:58 PM COMMUNITY OUTREACH SPECIALIST): Patient reports that symptoms have been present for more than 6 months, has not been seen for this previously. Symptoms seem to be worsening. Uncertain if this is related to his ongoing issues with cervical spinal stenosis and progression of disease, needs evaluation with ENT and suspect he will need possible nasopharyngoscopy. Further plan pending results. Elevated blood pressure reading 02/17/2022 02/12/2023 Assessment & Plan (02/17/2022 12:20 PM CDT): BP 160-170 today. Historically BP is high, not low. To hold midodrine for foreseeable future. Let me know if BP not improving with holding midodrine. Chronic frontal sinusitis 02/17/2022 Assessment & Plan (02/17/2022 12:21 PM CDT): Patient with chronic sinus symptoms. Improves briefly with antibiotic courses and then symptom resume immediately following them. To continue Flonase, follow up with ENT at [facility] next month as planned. Migrainous dizziness 04/02/2021 024 Overview (04/02/2021): blamed on chemicals and concussions from employment. CSF leak 11/17/2020 09/15/2024 Assessment & Plan (04/02/2021 12:58 PM CDT): Had blood patch procedure earlier this year and it did nto help with headaches but Dr. Cox thought they did not put enough blood in the blood patch. He has an appointment with Dr. Cox next month. He's not sure if he will get another blood patch. Assessment & Plan (01/01/2021 1:13 PM COMMUNITY OUTREACH SPECIALIST): He had one blood patch procedure and it did help with his headaches. Dr. Cox would like him to have another blood patch procedure done and he plans on doing this in near future. Assessment & Plan (11/17/2020 9:18 PM COMMUNITY OUTREACH SPECIALIST): Patient with recent MRI of the cervical, thoracic and lumbar spine, multiple cysts were noted, questionable CSF leak. He is set to see anesthesiology regarding a blood patch. Agree with management plan. Hold off on adjusting any medications pending completion of procedure, hopeful that this will help with his symptoms. BMI 24.0-24.9, adult 10/08/2020 023 Assessment & Plan (02/17/2022 12:10 PM CDT): Healthy weight. He denies recent weight change. Assessment & Plan (01/06/2022 3:47 PM CDT): Healthy weight. Assessment & Plan (04/02/2021 12:55 PM CDT): Healthy weight. Assessment & Plan (01/01/2021 1:09 PM COMMUNITY OUTREACH SPECIALIST): Healthy weight. Assessment & Plan (10/08/2020 8:30 AM COMMUNITY OUTREACH SPECIALIST): Lost weight 10 lbs in past 4 months. Monitor weight. Palpitations 10/08/2020 02/12/2023 Assessment & Plan (01/01/2021 1:15 PM COMMUNITY OUTREACH SPECIALIST): He reports some improvement in palpitations since starting metoprolol, to continue beta elizabeth therapy. Assessment & Plan (10/08/2020 10:43 AM COMMUNITY OUTREACH SPECIALIST): He reports palpitations with activity and sometimes they stop him in his tracks. Ordered 30 day event monitor to get more information on heart rhythm and find out if he's having PVCs. Hypernatremia 05/15/2020 02/12/2023 Assessment & Plan (05/15/2020 10:20 AM CDT): -repeat BMP. -encouraged patient well oral hydration. Cough 03/15/2020 02/12/2023 Assessment & Plan (01/06/2022 3:52 PM CDT): Coughing up colored material and having head and chest congestion daily, eyes crusting in morning. Treat for sinus infection with Augmentin twice daily for 10 days. Recommend evaluation with [facility] for chronic sinus symptoms. wanted him to also be evaluated for vocal cord dysfunction. Assessment & Plan (03/15/2020 10:15 AM CDT): Patient with worsening cough, fever intermittently over the last few days. Seems to be getting worse. Patient does sound congested and was coughing over the phone. I recommend coronavirus testing, a message was placed to the access center COVID - 19 team to schedule a drive up testing. Patient was given strict return precautions. Minimal dyspnea at this time period Hemoptysis 01/19/2020 03/08/2020 Assessment & Plan (01/19/2020 1:43 PM CDT): See shortness of breath. Right upper quadrant pain 01/03/2020 Assessment & Plan (01/19/2020 1:36 PM CDT): He has US of gallbladder scheduled. Assessment & Plan (01/03/2020 1:35 PM CDT): Recommend gallbladder US for RUQ pain and nausea. BMI 24.0-24.9, adult 01/03/2020 020 Assessment & Plan (01/19/2020 1:35 PM CDT): Healthy weight. Assessment & Plan (01/03/2020 1:45 PM CDT): He's been losing weight. Poor appetite and difficulty swallowing. Needs close monitoring. Annual physical exam 01/03/2020 020 Assessment & Plan (01/03/2020 1:49 PM CDT): 49 y/o presents for annual physical. Reviewed labs with him and they were within normal limits except for mildly elevated BG. Will check B12 level as he formerly was on B12 injections. He's having significant autonomic dysfunction. BP is stable on midodrine. Recommend he follow up with his neurosurgeon for reassessment since he's been declining and has abnormal cervical MRI results from Nov 2019. Cymbalta dose adjusted today. Follow up here in six weeks. See Dr. Painting later this month as planned. Right arm weakness 11/20/2019 4 Assessment & Plan (01/03/2020 1:27 PM CDT): R arm became weaker after surgery. He had cervical MRI that shows greatest concern at left C3-C4. Recommend he get prior MRI. Make an OV with surgeon Dr. Murray to discuss prior and current MRI findings. Assessment & Plan (11/20/2019 12:21 PM COMMUNITY OUTREACH SPECIALIST): The patient complains of right arm weakness that has gotten worse after the surgery. He also now is complaining of urinary retention. I know that his cervical x-ray is unremarkable and that the alignment has been corrected, but I would like to obtain an MRI to look at the soft tissue to see if this may explain his neurologic deterioration after the decompression. I will order an MRI of the cervical spine to be done and see him back afterward. Abnormal PFT 05/12/2019 01/06/2022 Bradycardia 06/18/2018 02/12/2023 Assessment & Plan (06/18/2018 8:55 AM CDT): Suspect vagal episodes in setting of stress/headaches. 3 episodes of bradycardia to 30s overnight. He was reporting headache at that time, but otherwise was asymptomatic. He has not had any other events. 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 Head CT normal. Neuro exam normal. Labs unrevealing. EEG results pending, but I suspect this will be unrevealing. -Neurology to f/u EEG results and discuss at appt next week. -Will obtain head CT (no prior head imaging in system) and metabolic work-up with TSH, B12, RPR, and UA. 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 Has been diagnosed w/ post-concussive syndrome, but unclear if he has truly had concussions in the past as he never sought medical attention, but self diagnosed. Reports episodes of confusion and then blacking out. Says family has noticed him babbling and not responding at times. He is aware of these episodes and states he looks at his phone until it passes. Other times, he states that he may be doing something, such as looking at his phone and then the next thing he remembers is coming to and his phone is on the floor. Does not fall during these episodes and remains upright. Patient reports worsening over last several months and stopped all his headache medications because he thought they were contributing. Has not seen improvement with cessation of meds. Denie ETOH and ETOH level negative. Head CT negative. CBC and BMP unrevealing. Mg normal. TSH pending. -Although, less likely seizure, will check EEG to r/o -Will obtain head CT (no prior head imaging in system) and metabolic work-up with TSH, B12, RPR, and UA. BMP & CBC completely normal Assessment & Plan (06/17/2018 4:26 AM CDT): Patient reports worsening over last several months and stopped all his headache medications because he thought they were contributing, but has not seen improvement with cessation of meds -Seems to fixate on his memory and repeatedly states that everyone around him has seen a decline -Likely combination of post-concussive syndrome, depression, and prior alcohol abuse -States he has periods of complete blackouts or loss of time but denies any current alcohol use. Ethanol level pending, seizure disorder is another potential source of symptoms -Will obtain head CT (no prior head imaging in system) and metabolic work-up with TSH, B12, RPR, and UA. BMP & CBC completely normal -Basic neuro exam intact and is A&Ox3, can consider MOCA for more formal cognition testing in AM -Consider EEG if symptoms do not improve -Would touch base with outpatient neurologist (Dr. Maloney) about restarting his prior headache medications (on Depakote in the past) Chronic headaches 06/17/2018 03/08/2020 Assessment & Plan (06/18/2018 8:49 AM CDT): Suspect psychogenic. Stopped his depakote and amitriptyline 2 months ago as above. Doesn't want to restart Depakote. -Continue amitriptyline as above. -F/u with Neuro and for further medication management. Assessment & Plan (06/17/2018 10:09 AM CDT): Feels headaches are becoming more frequent. Stopped his depakote and amitriptyline 2 months ago as above. Doesn't want to restart Depakote. -Restart amitriptyline as above. -F/u with Neuro and Psych for further medication management. Post concussive syndrome 09/04/2017 Postural instability 06/07/2017 024 Assessment & Plan (04/02/2021 1:00 PM CDT): Spastic gait and muscle strength 3/5 in all large upper and lower body muscle groups. I recommend a semi electronic hospital bed for home use. He requires change of position to alleviate dizziness and discomfort from POTS. Is wheelchair bound. Can stand and pivot but not walk more than a couple feet without help. Assessment & Plan (01/01/2021 1:17 PM COMMUNITY OUTREACH SPECIALIST): He has spastic gait and muscle strength is 3/5 in all large upper and lower body muscle groups. Would benefit from hospital bed at home. Uses wheelchair to ambulate. Can stand and pivot but cannot walk more than a couple feet without help. Assessment & Plan (06/18/2018 8:50 AM CDT): Suspect psychogenic as neuro exam is normal. Head CT normal. -Continue amitriptyline. -PT recommends acute rehab, but no working diagnosis. Home health PT/OT. -Given normal neuro exam, will defer MRI at this time. -F/u with Neurology as scheduled for next week. Assessment & Plan (06/17/2018 9:45 AM CDT): Has been diagnosed with PPPD in the past, but suspect mostly functional. He reports worsening symptoms over the last week and feels like he is unable to stand up without immediate dizziness and then feeling that his body is out of place. Recently stopped all medications besides inhalers as he felt there was no benefit, but also reports worsening sxs after stopping. Upon my exam, he swayed upon standing and trying walk. Unable to walk heel to toe. Upon attending's exam, he swayed, but was then able to walk with normal gait w/o falling. Does not favor a side when swaying. Cerebellar function intact on the rest of neuro exam. Head CT negative. -PT/OT -Will restart his amitriptyline at decreased dose of 25mg at HS. He is unwilling to restart depakote as he states this makes him too fatigued. -Given normal neuro exam, will defer MRI at this time. -F/u with Neurology as scheduled. Assessment & Plan (06/17/2018 4:17 AM CDT): Long standing history and has been diagnosed with persistent postural perceptual dizziness. Significantly affects quality of life as he no longer works nor drives due to this -Worsening of his symptoms over the last week and feels like he is unable to stand up without immediate dizziness and then feeling that his body of out of place -Recently stopped all medications besides inhalers and this may have exacerbated his symptoms -Denies any cardiac symptoms and troponin was negative -Will obtain orthostatic vital signs, fluid resuscitate with 1 L and monitor on telemetry overnight -PT and OT recs regarding ability to return home Headache, cluster 06/15/2016 09/15/2024 Assessment & Plan (02/17/2022 12:22 PM CDT): Not currently active, has seen Dr. Painting in past for this and been started on 60mg prednisone bursts for 5 days. Assessment & Plan (07/23/2020 2:24 PM CDT): The patient has had recurrence of his cluster headaches. I am going to put him on a prednisone burst 60 mg daily for the next 5 days. If she persists in having headaches beyond these 5 days, I would give him Emgality 300mg. Verapamil is contraindicated given his blood pressure issues. Migraine headache 06/15/2016 09/15/2024 Assessment & Plan (01/01/2021 1:15 PM COMMUNITY OUTREACH SPECIALIST): Some improvement in headaches with recent blood patch procedure. Vestibular migraine 06/15/2016 03/08/20 20 SOB (shortness of breath) Assessment & Plan (01/01/2021 1:17 PM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 Consulting Physician Pain Management 01/09/25
--- OUTSIDE RECORDS SUMMARY | 2025-03-26 06:08 | XMS_ITS | Referral Summary ---
Author Organization [facility] Address [address] [place] [address] Care Team Providers Care Narcotics Detective Name Role Phone MiniJohnny MD Unavailable [phone] Elian Painting MD Unavailable [phone] Geno Sifuentes MD Unavailable [phone] Chelsi Quiñonez OT Unavailable Unavailable Charisse Ragland OT Unavailable Unavaila Nadia Bustos OT Unavailable Unavailable Monserrat Murillo OT Unavailable Unavailable Richard Nunez DO Primary Care Provider [phone] Pierre Young MD Unavailable Cesar Plata MD Unavailable Encounters Date Type Department Care Team Description 03/13/2025 Orders Only [facility] Neuro[facility] [address] [place] [address] [address], [address] [place] [address] Kuldip Warner MD Nicotine use (Primary Dx) 02/07/2025 10:15 AM CDT Office Visit [facility] Neurosurgery Clinic [address] [place] [address] [address], [address] [place] [address] Kuldip Warner MD Cervicalgia (Primary Dx); Cervical stenosis of spine; Left cervical radiculopathy 01/25/2025 Results Follow-Up [facility] [address] [facility] [address] [place] [address] Jessa Kern, FRANK PTH 01/23/2025 9:13 AM CDT - 01/23/2025 11:59 PM CDT Hospital Encounter [facility] [address] [place] [address] Cervicalgia; Cervical stenosis of spine Discharge Disposition: Discharge to home or self care 01/17/2025 10:56 AM CDT - 01/17/2025 11:59 PM CDT Hospital Encounter [facility] [address] [facility] [address] [place] [address] Cesar Plata MD Facet arthropathy, cervical; Pain of cervical facet joint Discharge Disposition: Discharge to home or self care 01/09/2025 9:53 AM CDT - 01/09/2025 11:59 PM CDT Hospital Encounter [facility] [address] [address] Cesar Plata MD Facet arthropathy, cervical (Primary Dx); Pain of cervical facet joint Discharge Disposition: Discharge to home or self care from Last 3 Months Allergies Active Allergy Reactions Criticality Noted Date [...] a time. Coronary artery disease invo lving elim ira coronary artery of elim ira heart with unstable angina pectoris 02/23/2024 Gastroesophageal reflux disease without esophagi tis 01/12/2023 Assessment & Plan (01/12/2023 9:00 PM CDT): Continue with current medication, discussed lifestyle modifications Parathyroid abnormality 01/06/2022 Assessment & Plan (01/12/2023 9:01 PM CDT): Recheck parathyroid hormone Obstructive sleep apnea 01/06/2022 Assessment & Plan (01/06/2022 3:59 PM CDT): He follows with sleep specialist at the [facility] and tells me that the MD told him to keep using his recalled CPAP. I do not recommend using recalled machine. Referred patient to sleep medicine at [facility] to obtain replacement machine. Family history of [...] sent Assessment & Plan (12/14/2022 8:58 PM COATING LINE WORKER): Overall symptoms are minimal. Continue with current [...] muscle relaxer. Refer to pain management. Zip: [phone] - wants to find someone closer to [...] Spine. Assessment & Plan (12/14/2022 8:57 PM COATING LINE WORKER): Patient with known severe cervical spinal stenosis [...] Murray. Assessment & Plan (01/01/2021 1:13 PM COATING LINE WORKER): Cervical spine surgery [address] Murray and had abnormal MRI even after surgery. Repeat procedure was not recommended by Dr. Murray. Assessment & Plan (10/08/2020 10:40 AM COATING LINE WORKER): June 2019 had cervical spine surgery with [...] a telephone or video visit during the [address] emergency to the patient. After being given an opportunity to ask questions about and discuss this type of visit, the patient verbally consented to proceeding with the telephone/video visit. The patient understands that this service replaces an office visit and they may be billed and/or responsible for any applicable copayments. @SIGENC2@ @HI@ Assessment & Plan (05/31/2020 4:23 PM CDT): [...] Was improving after surgery but worsened around [place] time. Autonomic symptoms increased and he had [...] surgery, but felt progress was stalled around [place] time when autonomic symptoms worsened. He's currently unable to stand without support and has significant spasticity with trying to stand. He's on baclofen. Severe L C3-C4 foraminal stenosis was found on Nov 2019 cervical MRI ordered by Dr. Painting. I discussed with Dr. Nunez. Recommend that patient follow up with Dr. Murray and bring copy of prior MRI from [facility]. Assessment & Plan (11/22/2019 10:08 AM COATING LINE WORKER): Patient with previous noted cervical myelopathy, status [...] 11/20/2019 Assessment & Plan (11/20/2019 12:20 PM COATING LINE WORKER): The patient complains of memory loss. I [...] river would recommend finding a provider in [place] Assessment & Plan (01/28/2024 8:18 AM CDT): [...] help Assessment & Plan (12/14/2022 8:57 PM COATING LINE WORKER): Patient with longstanding issues with autonomic dysfunction, previously seen by a specialist through [facility], has not followed up since May of [...] has seen neuromuscular specialist Dr. Cox at [facility]. He's frustrated by lack of improvement despite different interventions he's tried over the years. He will follow up with neuromuscular PA/SENIOR QUALITATIVE RESEARCHER if needed in future. Assessment & Plan (01/01/2021 1:18 PM COATING LINE WORKER): Since I have met him, Fredy has [...] been placed so he can meet with high school social studies tutor to help him with placement as he needs some additional care. Assessment & Plan (11/17/2020 9:17 PM COATING LINE WORKER): Patient with known autonomic dysfunction, follows with [...] potential Assessment & Plan (11/05/2020 10:33 AM COATING LINE WORKER): The patient is a 49-year-old gentleman with [...] a telephone or video visit during the [facility]- [facility] emergency to the patient. After being given an opportunity to ask questions about and discuss this type of visit, the patient verbally consented to proceeding with the telephone/video visit. The patient understands that this service replaces an office visit and they may be billed and/or responsible for any applicable copayments. @SIGENC2@ @HI@ Assessment & Plan (10/08/2020 10:37 AM COATING LINE WORKER): This continues to make him feel poorly. [...] I am going to send back in [facility] 200 mg t.i.d. for his labile blood [...] his visit with autonomic dysfunction specialist at [facility] and June. He continues on his steroid [...] insufficiency. I will reach out to her plating department helper to see about testing for this while [...] with his neurosurgeon Dr. Murray to discuss [id number] MRI results once COVID 19 pandemic is [...] check. Assessment & Plan (12/13/2019 1:35 PM COATING LINE WORKER): EKG today: no acute findings. Reached out to Dr. Painting about increasing the dose of droxidopa - Will increase dose to 200 mg three times per day Will get additional lab testing Call Dr. Painting for earlier f/u apt Assessment & Plan (11/22/2019 10:06 AM COATING LINE WORKER): Patient with multiple symptoms including intermittent sweating, [...] rating Assessment & Plan (11/20/2019 12:19 PM COATING LINE WORKER): Based on the patient's symptoms I strongly [...] smoking. Assessment & Plan (11/22/2019 10:08 AM COATING LINE WORKER): 1/3 to 1/2 pack per day. Has [...] 2023 Assessment & Plan (01/01/2021 1:15 PM COATING LINE WORKER): Alk phos elevated on labs. To recheck [...] past. Assessment & Plan (01/01/2021 1:19 PM COATING LINE WORKER): He was unable to tolerate cymbalta at doses higher than 60mg daily. He asked repeatedly for alprazolam but Dr. Nunez and I feel this is dangerous for him to take because it is habit forming and will make him more tired. He can use hydroxyzine 25mg up to twice daily as needed for acute anxiety. Would like him to joint POTS support group and provided him information on this. Assessment & Plan (10/08/2020 10:42 AM COATING LINE WORKER): He continues on cymbalta 60mg daily. Still [...] weeks. Assessment & Plan (11/22/2019 10:09 AM COATING LINE WORKER): Chronic issue, seems to be worsening with [...] (01/12/2023): Added automatically from request for surgery [id number] Screening for malignant neoplasm of colon 01/12/2023 02/12/2023 Overview (01/15/2023): Added automatically from request for surgery [id number] Hoarseness of voice 12/14/2022 02/13/20 Assessment & Plan (01/12/2023 9:01 PM CDT): Persistent hoarseness, previously given an ENT referral, he has not yet called to schedule an appointment. Symptoms persist. Uncertain of exact etiology. Needs ENT evaluation given chronicity of symptoms Assessment & Plan (12/14/2022 8:58 PM COATING LINE WORKER): Patient reports that symptoms have been present [...] continue Flonase, follow up with ENT at [facility] next month as planned. Migrainous dizziness 04/02/2021 [...] patch. Assessment & Plan (01/01/2021 1:13 PM COATING LINE WORKER): He had one blood patch procedure and it did help with his headaches. Dr. Cox would like him to have another blood patch procedure done and he plans on doing this in near future. Assessment & Plan (11/17/2020 9:18 PM COATING LINE WORKER): Patient with recent MRI of the cervical, [...] weight. Assessment & Plan (01/01/2021 1:09 PM COATING LINE WORKER): Healthy weight. Assessment & Plan (10/08/2020 8:30 AM COATING LINE WORKER): Lost weight 10 lbs in past 4 months. Monitor weight. Palpitations 10/08/2020 02/12/2023 Assessment & Plan (01/01/2021 1:15 PM COATING LINE WORKER): He reports some improvement in palpitations since starting metoprolol, to continue beta elizabeth therapy. Assessment & Plan (10/08/2020 10:43 AM COATING LINE WORKER): He reports palpitations with activity and sometimes [...] daily for 10 days. [facility]. wanted him to also be evaluated for vocal cord dysfunction. Assessment & Plan (03/15/2020 10:15 AM CDT): Patient with worsening cough, fever intermittently over the last few days. Seems to be getting worse. Patient does sound congested and was coughing over the phone. I recommend coronavirus testing, a message was placed to the [facility] COVID - 19 team to schedule [...] findings. Assessment & Plan (11/20/2019 12:21 PM COATING LINE WORKER): The patient complains of right arm weakness [...] help. Assessment & Plan (01/01/2021 1:17 PM COATING LINE WORKER): He has spastic gait and muscle strength [...] 09/15/2024 Assessment & Plan (01/01/2021 1:15 PM COATING LINE WORKER): Some improvement in headaches with recent blood patch procedure. Vestibular migraine 06/15/2016 03/08/20 20 SOB (shortness of breath) Assessment & Plan (01/01/2021 1:17 PM COATING LINE WORKER): He still has shortness of breath despite taking spiriva and symbicort. Placed pulmonology referral. I feel that most of his shortness of breath may be from his autonomic dysfunction. Assessment & Plan (10/08/2020 10:43 AM COATING LINE WORKER): He is on spiriva daily ans uses symbicort on certain weeks when he's more symptomatic. He has normal eval by mail processing equipment mechanic at different hospital system and would like second opinion from [facility] physical. Referral placed for Dr. Lombardi. Assessment [...] albuterol. Assessment & Plan (11/22/2019 10:09 AM COATING LINE WORKER): Uncertain etiology, but likely related to his autonomic dysfunction. Patient is following with pulmonology at the [facility]. Has scheduled follow-up next week. Continue with medications as is currently. Pulmonary exam unremarkable today. Immunizations Immunization Administration Dates Next Due Influenza, [...] 09/15/2024 Pneumococcal Polysaccharide PPV23 03/24/2016 Tdap 12/29/2017,03/05/2008 Social History Tobacco Use Types Packs/Day Years [...] often do you attend chur ch or protestant services? Never 01/23/2021 Do you belong to any clubs o r organizations such as orthodoxy groups, unions, fraternal or athletic groups, or [...] place to sleep or slept in a skilled nursing (including now)? No 01/23/2021 PHQ-9 Answer Date Recorded PHQ-9 Total Score 21 09/10/2024 Personal Safety Answer Date Recorded Have you ever been in or are you currently in a harmful physical or emotional relationship or is someone making you feel afraid or unsafe? Denies 02/25/2024 Sex and Gender Information Value Date Recorded Sex Assigned at Not on file Legal Sex Male 8:47 AM COATING LINE WORKER Gender Identity Not on file Sexual Orientation Straight 10/02/2019 2: 43 PM COATING LINE WORKER Last Filed Vital Signs Vital Sign Reading [...] COLONOSCOPY Open Access Screening for colon cancer Medical Devices Implanted Type Area Professional Athletes Coach Device Identifier Shelf Expiration Date Model / Serial / Lot [employer] 700-025 I Factor Allograft Putty Syringe Graft 2.5cc Bone - Sn/A - [id number] Implanted:Qty: 1 on 07/24/2019 by Johnny Murray MD at [facility] N/A: Spine Cervical [employer] Inc 03/24/2022 700-025 / N/A / [id number] Allograft Vikos Cervical 11.5x14.5x7mm - [id number] - [id number] Implanted:Qty: 1 on 07/24/2019 by Johnny Murray MD at [facility] N/A: Spine Cervical Dimitri Spine 11/19/2021 [id number] / [id number] / Depuy Spine [id number] [place] [id number] 1 Level Spine Cervical Anterior 12mm Prebent - Sn/A - [id number] Implanted:Qty: 1 on 07/24/2019 by Johnny Murray MD at [facility] N/A: Spine Cervical Depuy Spine [id number] / N/A / Depuy Spine [id number] [place] 4mm 12mm Variable Self Drill Spine Cervical Anterior - Sn/A - [id number] Implanted:Qty: 4 on 07/24/2019 by Johnny Murray MD at [facility] N/A: Spine Cervical Depuy Spine [id number] / N/A / [employer] Yogi Stent Coronary Drug Eluting Rapid Exchange Synergy Xd [id number] [place] Chromium [id number] - [id number] Implanted:Qty: 1 on 02/25/2024 by Pierre Young MD at [facility] Fitzeal Yogi 11/02/2025 [id number] / / [id number] Procedures Procedure Name Priority Date/Time Associated Diagnosis Comments MRI CERVICAL SPINE WO CONTRAST Schedule Routine, Read Routine (OP Routine) 01/23/2025 10:22 AM CDT Cervicalgia Cervical stenosis of spine PAIN MGMT IMAGING CERVICAL/THORACIC FACET/MEDIAL BRANCH BLOCK BILATERAL Schedule Routine, Read Routine (OP Routine) 01/17/2025 11:57 AM CDT Facet arthropathy, cervical Pain of cervical facet joint HEPATITIS C ANTIBODY Routine 09/15/2024 11:52 AM COATING LINE WORKER Need for hepatitis C screening test PSA SCREEN Routine 09/15/2024 11:52 AM COATING LINE WORKER Screening for prostate cancer COLONOSCOPY 02/25/2023 11:25 [...] hypertrophic facet arthropathy. No spinal canal stenosis. Sdyx-oeisetn-hmsr-right neural foraminal stenosis, noting combination of posterior [...] Kyle Campos M.D. LAINEY T: Report ID: [id number] Reading Location: [place] [address] Procedure Note Kyle Campos MD - 01/23/2025 [...] hypertrophic facet arthropathy. No spinal canal stenosis. Hidl-viemuub-sxve-right neural foraminal stenosis, noting combination of posterior [...] Kyle Campos M.D. LAINEY T: Report ID: [id number] Reading Location: [id number] Tristan SANDY IMG MRI PROCEDURES Final R esult * Imaging Cervical/Thoracic Facet Medial Branch Block Bilateral ([id number]) (01/17/2025 11:57 AM CDT) Narrative [email or web address] - 01/17/2025 12:43 PM CDT The images from this study are not interpreted by Radiology. Please refer to the physician's procedure / OR operative note. Cesar Plata MD IMG PAIN MGMT PROCEDURES Final R esult Performing Organization Address [facility] de Phone Number [email or web address] * PSA screen (09/15/2024 11:52 AM COATING LINE WORKER) PSA-Total 0.67 <=3.90 ng/mL Comment: Interpretive Data AGE SEX REFERENCE INTERVAL 0 minutes-150 years Female None 0 minutes-49 years Male None 50-59 years Male 0-3.90 60-69 years Male 0-5.40 70-79 years Male 0-6.20 80-150 years Male 0-6.20 The [employer] PSA Total assay procedure was used. Results from different manufacturers or methods may not be comparable. Serial testing should be performed using the same method. Current interpretive data last revised 22. Blood 09/15/2024 11:5 2 AM COATING LINE WORKER 09/15/2024 4:41 PM COATING LINE WORKER Jessa Kern DNP LAB BLOOD ORDERABLES Final R esult Performing Organization Address [facility] de Phone Number [facility] [address] Department [place] [address] * Hepatitis C antibody Blood (09/15/2024 11:52 AM COATING LINE WORKER) Hep C Ab Nonreactive Nonreactive Comment: Interpretive [...] on 2020. Blood 09/15/2024 11:5 2 AM COATING LINE WORKER 09/15/2024 4:41 PM COATING LINE WORKER Jessa Kern DNP LAB MICROBIOLOGY - GENERAL O RDERABLES Final Result Performing Organization Address [facility] Co de Phone Number [facility] [address] Department [place] [address] * COLONOSCOPY (02/25/2023 11:25 AM CDT) Anatomical Region Laterality Modality Other Narrative Procedure Note Khushboo Crowe MD - 02/25/2023 11:25 AM CDT ENDOSCOPY LAB Patient Name: Sumit Beachjo ann Procedure Date: 02/25/2023 11:25 AM Admit Type: Outpatient Room: [facility] Date of : 1970 Instrument Name: [id number] [...] Most Recently Relevant to Health Maintenance Insurance [facility] [employer] MEDICARE HMO MEDICARE MEDICARE HMO Advance Directives For more information, please contact: [phone] * Full Code (Latest Code Status on [...] 5:06 AM 06/18/2018 2:33 PM Care Teams Narcotics Detective Relationship Specialty Start Date End Date Richard Nunez DO [address] [place] [address] PCP - General Family Medicine 11/29/19 Johnny Murray MD [address] [place] [address] Consulting Physician Neurosurgery 08/11/19 Elian Painting MD [address] [place] [address] Consulting Physician Neurology 08/11/19 Geno Sifuentes MD [address] [place] [address] Consulting Physician Physical Medicine and Rehabilitation 08/11/19 Chelsi Quiñonez, OT Occupational Therapist Occupational Therapy 09/05/19 Charisse Ragland, OT Occupational Therapist Occupational Therapy 09/07/19 Nadia Goldman, OT Occupational Therapist Occupational Therapy 09/11/19 Monserrat Murillo, OT Occupational Therapist Occupational Therapy 09/19/19 Pierre Young MD [address] [address] Consulting Physician Cardiology 10/12/24 Cesar Plata MD [facility] [address] [address] Consulting Physician Pain Management 01/09/25
--- OUTSIDE RECORDS SUMMARY | 2025-03-26 06:08 | XMS_ITS | Clinical Summary ---
Author Organization [facility] Address [address] [place] [address] Care Team Providers Care Erisa Attorney Name Role Phone Richard Nunez DO Primary Care Provider [phone] Source Comments [facility],non-owned Affiliates and Associated Physician Practices is amultiple site organization consisting of ambulatory clinics and hospital sitesin [place], [place], [place] and [place]. This disclosure is being madepursuant to the Care Everywhere program and may not contain all information available regarding this patient. Last updated 18.[facility] Allergies Active Allergy Reactions Criticality Noted Date Comments Amitriptyline Psychiatric Medium 06/17/2020 Doxycycline GI Discomfort 06/17/2020 Medications * Be aware that medications may not be up to date on this document. Alwaysverify current medications with the patient. Tiotropium Howell Monohydrate (SPIRIVA RESPIMAT IN) Inhale by mouth once daily Active Budesonide-Form oterol Fumarate (SYMBICORT IN) Inhale by mouth once daily as needed Active LORATADINE PO Take 10 mg by mouth as needed Active atorvastatin (LIPITOR) 20 MG tablet 20 mg at bedtime 0 Active azelastine (ASTELIN) 0.1 % nasal spray [place] 2 sprays into the nose as needed 0 Active Vitamin D3 (CHOLECALCIFERO L) 50 MCG (1999 UT) capsule Take 2,000 Units by mouth once daily 9 Active cyanocobalamin (VITAMIN B-12) 1000 MCG tablet Take 1,000 mcg by mouth once daily 9 Active acetaminophen (TYLENOL) 500 MG tablet Take 500 mg by mouth 5 times daily as needed for Fever or Pain Maximum allowable Acetaminophen amount = 4 Grams (4000 mg) / 24 hours. Active metoprolol succinate XL 24hr (TOPROL XL) 25 MG tablet Take 25 mg by mouth once daily 1 Active pyridostigmine (MESTINON) 60 MG tablet Take 1 (one) tablet by mouth 3 times daily 270 tablet 3 2 Active midodrine (PROAMATINE) 5 MG tablet Take 1 (one) tablet by mouth 3 times daily before meals 270 tablet 1 2 Active fludrocortisone (FLORINEF) 0.1 MG tablet TAKE 1 TABLET EVERY DAY 90 tablet 3 2 Active DULoxetine (CYMBALTA) 20 MG capsule TAKE 3 CAPSULES AT BEDTIME 270 capsule 3 2 Active Active Problems Problem Noted Date Diagnosed Date Migrainous dizziness Overview (06/17/2020): blamed on chemicals and concussions from employment. COPD (chronic obstructive pulmonary disease) Overview (06/17/2020): blamed on chemicals and concussions from employment. High cholesterol Cervical myelopathy Autonomic dysfunction Acid reflux Acid reflux CSF leak POTS (postural orthostatic tachycardia syndrome) Parathyroid abnormality Family History Medical History Relation Name Comments Cancer - Colon Father Other - Cardiac Father Heart Diseas e Relation Name Status Comments Father Alive Mother Alive Sister Alive Social History Tobacco Use Types Packs/Day Years Used Date Smoking Tobacco: Every Day Cigarettes Smokeless Tobacco: Never Tobacco Cessation:Ready to Q uit: No; Counseling Given: Yes Comments:Maybe 7 a week Alcohol Use Standard Drinks/Week Comments Not Currently 0 (1 standard drink = 0.6 oz pur e alcohol) Sex and Gender Information Value Date Recorded Sex Assigned at Male 09/19/2020 10:03 AM [employer] Legal Sex Male 11:00 AM CDT Gender Identity Male 09/19/2020 10:03 AM [employer] Sexual Orientation Straight 09/19/2020 10 :03 AM [employer] Occupation Industry Job Start Date Job End Date Disabled Not on file Not on file Not on file Last Filed Vital Signs Vital Sign Reading Time Taken Comments Blood Pressure 128/75 06/03/2021 10:44 AM CDT Pulse 56 06/03/2021 10:44 AM CDT Temperature 36.5 C (97.7 F) 11/19/2020 8:27 AM [employer] Respiratory Rate 16 11/19/2020 8:27 AM [employer] Oxygen Saturation 96% 11/19/2020 8:27 AM [employer] Inhaled Oxygen Concentration - - Weight 83.9 kg (185 lb) 06/03/2021 10:44 AM CDT Height 188 cm (6' 2) 06/03/2021 10:44 AM CDT Body Mass Index 23.75 06/03/2021 10:44 AM CDT Plan of Treatment Health Maintenance Due Date Last Done Comments COLOGUARD (AGES 45-75) - COL ON CA SCREENING 1971 COLON MONITORING 1971 COLONOSCOPY - COLON CA SCREENING 1971 CT COLONOGRAPHY - COLON CA SCREENING 1971 Colorectal Cancer Screening 1971 FIT - COLON CA SCREENING 1971 FLEX SIG - COLON CA SCREENING 1971 HIV SCREENING 1986 HEPATITIS C SCREENING 11/25/1989 DTAP/TDAP/TD VACCINES (1 - Tdap) 1990 HEPATITIS B VACCINE (1 of 3 - 19+ 3-dose series) 1990 PNEUMOCOCCAL VACCINE 50+ (1 of 1 - PCV) 2021 ZOSTER VACCINE (1 of 2) 2021 COVID-19 VACCINE (3 - 2023-2 5 season) 2024 03/21/2021, 02/21/2021 DEPRESSION SCREENING 10/25/2024 INFLUENZA VACCINE (Season Ended) 2025 HIB VACCINE Aged Out No longer eligi ble based on patient's age to complete this topic HPV VACCINE Aged Out No longer eligi ble based on patient's age to complete this topic MENINGOCOCCAL (Group B) VACCINE SHARED DECISION-MAKING Aged Out No longer eligible based on patient's age to complete this topic MENINGOCOCCAL GROUPS A/C/Y/W VACCINE Aged Out No longer eligible b ased on patient's age to complete this topic Care Teams Erisa Attorney Relationship Specialty Start Date End Date Richard Nunez DO [address] [address] [place] [address] PCP - General Family Medicine 06/03/21
--- OUTSIDE RECORDS SUMMARY | 2025-03-26 06:08 | XMS_ITS | Continuity of Care Document ---
Author Organization [facility] Address [place], [place] [address] Care Team Providers Care Er Tech Name Role Phone Geno Sifuentes MD Unavailable Unavailable Allergies, Adverse Reactions, Alerts Substance Reaction Status Criticality No Known Allergies Active No Inform ation Medications Medication Instructions Dosage Effective Dates (start - stop) Status Comments BACLOFEN (unknown strength) Not Available - Active TIZANIDINE HCL (unknown strength) Not Available - Active PANTOPRAZOLE SODIUM (unknown strength) Not Available - Active CYMBALTA (unknown strength) Not Available - Active SPIRIVA RESPIMAT (unknown strength) Not Available - Active SYMBICORT (unknown strength) Not Available - Active LORATADINE (unknown strength) Not Available - Active TYLENOL (unknown strength) Not Available - Active Procedures Procedure Date OFFICE/OUTPATIENT VISIT EST Advance Directives Directive Yes / No Effective Date File Name No Information Encounters Encounter Description Practice Location Reason(s) For Visit Diagnoses Date Provider Providers Copied on Encounter [facility], [place], [address], [facility] No Information 0 Bear Lora. [address], [place], [place], [id number] . tel: [phone] OFFICE/OUTPA TIENT VISIT EST [facility], [place], [address], [facility] Follow Up of non-traumati c spinal cord dysfunction (chief complaint) Body mass index (BMI) 25.0-25.9, adultCervical myelopathyAmb ulatory dysfunctionDe creased hearing of both earsDizziness Anxiety and depression 9 Bear Lora. [address], [place], [place], [id number] . tel:[phone] Family History Family Member Type Diagnosis Age At Onset Problem (finding) Family history of Heada ches Problem (finding) Family history of depre ssion Father Problem (finding) Myocardial infarction Payers Payer name Insurance type Covered republican ID Ju dejesus(s) Medicare E2 OT [id number] [facility] - [id number] [facility] n [facility] OT [id number] Social History Type Description Quantity Date Captured Comments Alcohol Use Details Unknown Caffeine Use Details Unknown Tobacco Use Status Smoking Status No Information Sex Male Chief Complaint And Reason For Visit No Information Reason For Referral Reason For Referral No Information Plan Of Treatment Date Type Action Status Goal Tobacco cessation counseling completed Goal Tobacco cessation counseling completed Referral Referred To: [facility] [address] [place], [place], [phone] Ordered: Referrals: Allopathic & Osteopathic Physicians : Psychiatry & Neurology : Neurology. [facility]. Evaluate and treat ordered Referral Referred To: Daniel Darby [address] [place], [phone] Ordered: Referrals: Allopathic & Osteopathic Physicians : Otolaryngology. Daniel Darby. Evaluate and treat ordered Referral Referred To: Richard Nunez [address] [place], [place], [phone] Ordered: Referrals: Allopathic & Osteopathic Physicians : Family Medicine. Richard Nunez. Evaluate and treat ordered History Of Present Illness Encounter Date Complaint History Of Prese nt Illness Follow Up of non-tra umatic spinal cord dysfunction Sumit is being seen in my office today, accompanied by his sister, Jenna, for a previously scheduled appointment. He is a pleasant 48 year old gentleman who is well known to me after a recent stay at the [facility] acute rehabilitation unit. Sumit was admitted to the unit on 07/26/2019 following a diskectomy and fusion at C3-4 on 07/24/[address] Morse. Prior to his surgery, he reports to having a 7 to 8 year history of progressive neck pain. He also had weakness in his arms with loss of dexterity. Over the last year, he began to have more difficulty walking as wells as shaking when he tried to walk. The patient was seen at the [facility] and had a MRI performed on April 26, 2019. The MRI reveled cervical spondylosis with significant spurring C3-4, significant posterior osteophytes at C3-4, with central canal stenosis. The patient tells me that the [facility] was unable to perform the cervical surgery and referred him to [facility] for surgical intervention. Immediately after the surgery, the patient reported that his strength and sensation improved but he still had a tremor in his hands. The patient was admitted to the inpatient rehabilitation unit for comprehensive inpatient rehabilitation. Sumit participated in the program and made notable gains in his strength, endurance and functional mobility. He was discharged home on 08/13/2019. Since the patient has been home, he has been participating in outpatient therapy at [facility]. He tells me that he has been progressing well. He tells me that yesterday he started using a walker. Sumit lives alone. He is able to function independently from a wheelchair level. He tells me that he prepares simple meals. His family visits often. He uses a manual wheelchair for mobility as he does not want to risk falling. Sumit says that he occasionally experiences neck pain along with headaches. He takes Tylenol for this. The patient's biggest complaint is that he has been having dizzy spells. The patient cannot relate these spells to any specific activity. He says that sometimes he feels hot. He tells me that if he keeps moving, he feels better. At times, he feels that his vision darkens. He admits to concussions in the past. He is on oral Baclofen for spasticity. He says that he still has intermittent upper extremity tremors. His sleep is not effected. Sumit is continent for bowel and bladder. He denies numbness. Functional Status Date Functional Assessmen t No Information Instructions Date Instruction Additional Infor abisai Giving encouragement to exercise Related to Body mass index (BMI) 25.0-25.9, adult Assessments Type Assessment Date No Information Patient Care Teams Name Effective Dates (start - stop) Status Members No Information
--- NOTE | 2025-03-26 06:27 | ED.ALCOHOL ---
HPI - Alcohol General Chief Complaint: Alcohol Stated Complaint: ETOH/SI Time Seen by Provider: 03/26/25 05:57 Source: patient and RN notes reviewed Mode of arrival: EMS History of Present Illness HPI narrative: Patient presents with suicidal ideation after consuming alcohol. He states he used to be a heavy drinker on long time ago but had not drink/had not drank heavily in the past 2 years. Recently however, he has been under a lot of stress. Part of this stress comes from the fact that his dog is in the process of dying and likely only has a few days left to live. This has caused increased anxiety and for this he did drink 18 Medello beers. He is bed-bound/wheelchair-bound given that he has issues with his cervical spine which causes and have autonomic dysfunction. He notes that he has been having passive thoughts of ending his life. No distinct plan and no self-injurious behavior. He denies taking his medications abnormally. He states that he took his 520 mg tablets of duloxetine for a total of 100 mg which is his prescribed dosage which is 4 with his mental health as well as his nerve issues. He is also on atorvastatin aspirin and he states that he has been taking these appropriately. He denies any homicidal ideation. He denies any visual hallucinations or auditory hallucinations although he does state that he has chronic tinnitus. When he used to drink heavily he denies any issues with withdrawal/complicated withdrawal. No previous attempts at suicide. He had initially stated that he was not going to a nut house when asked by the nurse. He clarifies that he knows that his alcohol consumption has led him to feel this way he would be open to talking with somebody about getting resources. [facility] but this has fallen off a bit except for taking the duloxetine. Related Data Allergies Allergy/AdvReac Type Severity Reaction Status Date / Time amitriptyline Allergy Intermediate Hallucinati Verified 03/26/25 03:15 ng [facility] Past Medical History Medical History Tinnitus Bedbound Wheelchair dependent Autonomic dysfunction Social History Social History Social History: Receives care through the [facility] Alcohol use details: previously heavy consumption until 2022; heavy consumption 03/25/25 Substance use type: unknown Additional occupation/education comments: Former [employer] Narrative: GENERAL: Well-appearing, well-nourished, and in no acute distress. HEAD: Normocephalic, atraumatic. EYES: Non injected, non icteric ENT: Nares clear, no rhinorrhea or epistaxis. Gross auditory acuity intact. NECK: Supple. No meningismus. CHEST: Speaking in full sentences. No respiratory distress. HEART: Regular rate and rhythm. . ABDOMEN: Soft, nondistended. EXTREMITIES: No lower extremity edema. SKIN: Warm, dry, no rash. NEURO: Alert and oriented. Answering questions. Following commands. Normal speech without aphasia or dysarthria/not slurred, easily understandable. PSYCH: Does not appear to be responding to internal stimuli. Behavior: Calm, good eye contact, in no acute distress. Mood is congruent with affect. Speech: Appropriate rate, quantity and volume. Endorses passive SI without plan; denies HI. Denies Auditory/visual hallucinations. Cognition: Normal. Insight: Good. Judgment: Good. Course Vital Signs Vital signs: Vital Signs Temperature 97.8 F 03/26/25 03:08 Pulse Rate 93 03/26/25 03:08 Respiratory Rate 20 03/26/25 03:08 Pulse Oximetry 100 03/26/25 03:08 Oxygen Delivery Room Air 03/26/25 03:08 Temperature 97.8 F 03/26/25 03:08 Pulse Rate 78 03/26/25 06:04 Respiratory Rate 14 03/26/25 06:04 Blood Pressure 114/68 03/26/25 06:04 Pulse Oximetry 92 03/26/25 06:04 Oxygen Delivery Room Air 03/26/25 03:08 MDM - Alcohol MDM Narrative Medical decision making narrative: Patient presents with intoxication and suicidal ideation. In the emergency department he is afebrile with vital signs that are acceptable although mild hypertension. Ethanol level greater than 150. This suggests that an approximately 4-1/2 hours he will reach legal sobriety. Repeat ethanol level ordered for 8:00 a.m.. Patient's ethanol level less than 80 at the time of re-examination when he scores negative on COlumbia scale for RN. I did go and reassess him been asked if he wants to continue the plan of having crisis team, to provide resources even though he states he is no longer having suicidal ideation. He states no at this time. I did encourage him to reestablish with the services and resources he was getting through the [facility]. he was given a list of generic resources with his discharge instructions. He will require EMS transportation given that he does not ambulate and is bed-bound. Differential Diagnosis Differential diagnosis: Likely alcohol intoxication and other (suicidal ideation; anxiety/depression; drug induced) Lab Data Attestation: I reviewed the patient's lab results. 03/26/25 03:17 03/26/25 03:17 Labs: Lab Results 03/26/25 03/26/25 03/26/25 Range/Units 03:17 03:24 08:10 WBC 9.2 (4.5-10.0) K/mm3 RBC 4.68 (4.6-6.20) M/mm3 Hgb 14.0 (14.0-18.0) g/dL Hct 42.6 (42.0-52.0) % MCV 91.0 (80-100) fl MCH 29.9 (26-34) pg MCHC 32.9 (32-36) g/dl RDW 14.3 (11.5-14.5) % Plt Count 227 (150-375) k/mm3 MPV 10.8 H (7.4-10.4) fl Immature Gran % (Auto) 0.2 (0-0.5) % Neut % (Auto) 56.8 (45.5-73.1) % Lymph % (Auto) 34.4 (18.3-44.2) % [place] % (Auto) 6.6 (2.6-8.5) % Eos % (Auto) 1.6 (0-4.4) % Baso % (Auto) 0.4 (0.2-1.2) % Lymph # (Auto) 3.18 (0.9-3.2) K/mm3 [place] # (Auto) 0.6 (0.1-0.6) K/mm3 Eos # (Auto) 0.2 (0-0.3) K/mm3 Baso # (Auto) 0.0 (0.0-0.1) K/mm3 Abs Immat Gran (auto) 0.02 (0.00-0.031) K/mm3 Absolute Neuts (auto) 5.2 (1.3-6.7) K/mm3 Absolute Nucleated RBC 0.000 (0.0-0.012) K/mm3 Nucleated RBC % 0.0 (0.0-0.2) % Sodium 140 (137-145) mmol/L Potassium 4.3 (3.4-5.0) mmol/L Chloride 104 (98-107) mmol/L Carbon Dioxide 23 (22-30) mmol/L Anion Gap 13 H (4-12) mmol/L BUN 5 L (9-20) mg/dL Creatinine 0.77 (0.7-1.3) mg/dL Estim Creat Clear Calc 112 ml/min Estimated GFR > 60 (59 - ) Glucose 120 H (65-110) mg/dL Calcium 9.7 (8.4-10.2) mg/dL Total Bilirubin 0.3 (0.2-1.3) mg/dL AST 27 (17-59) U/L ALT 28 (6-50) U/L Alkaline Phosphatase 112 (38-126) U/L Total Protein 8.0 (6.3-8.2) g/dL Albumin 4.7 (3.5-5.1) g/dL TSH (Reflex) 1.410 (0.465-4.68) uIU/mL Urine Color Yellow (Yellow) Urine Appearance Clear (Clear) Urine pH 5.5 (5.0-9.0) Ur Specific [place] 1.003 (1.001-1.035) Urine Protein Negative (Negative) mg/dL Urine Glucose (UA) Negative (Negative) mg/dL Urine Ketones Negative (Negative) mg/dL Ur Blood (Man) Negative (Negative) Urine Nitrate Negative (Negative) Urine Bilirubin Negative (Negative) Urine Urobilinogen 0.2 (<2.0) mg/dL Leukocyte Esterase Rfl Negative (Negative) [place]/UL Urine Opiates Screen Negative (Negative) Urine Methadone Screen Negative (Negative) Ur Barbiturates Screen Negative (Negative) Ur Phencyclidine Scrn Negative (Negative) Ur Amphetamine Screen Negative (Negative) U Benzodiazepines Scrn Negative (Negative) Urine Cocaine Screen Negative (Negative) U Cannabinoids Screen Negative (Negative) Ethyl Alcohol 166 66 (<10) mg/dL Influenza A (RT-PCR) Negative (Negative) Influenza B (RT-PCR) Negative (Negative) RSV (RT-PCR) Negative (Negative) SARS-CoV-2 RNA (RT-PCR) Negative (Negative) ECG Data EKG #1: Attestation: I personally reviewed and interpreted this ECG as follows: ECG completion date: 03/26/25 ECG completion time: 03:18 Interpretation: Normal sinus rhythm at a rate of 80 beats per minute. NV interval 160. QRS 98. QT/QTC 386/421. Good R-wave progression across the precordial leads. T-wave inversion in V3, possibly due to lead placement. Suspect right ventricular conduction delay given the RSR M shaped appearance in V1 V2 and V3. Discharge Plan Discharge Clinical Impression: Alcoholic intoxication, Passive suicidal ideations Patient Disposition: Home Condition: Stable Instructions: Antibiotic Form, Alcohol Intoxication (ED), Suicide Prevention (ED) Additional Instructions: [facility]; additional/alternative resources are being provided in your discharge instructions. Return to the emergency department with any new, worsening, unmanaged, or recurrent symptoms. Continue taking your medications as prescribed. Patient Language: American Follow-up/Referrals: Richard Nunez [Other] Time of Disposition: 08:48
[2025-03-26 08:34] LABS: Ethanol 66 mg/dL (<10)
[2025-03-26 09:00] VITALS: BP 118/87; PULSE 76; RESP 16; O2SAT 99
== END 2025-03-26 09:40 | disposition home or self-care (01) ==
PROVIDERS: Emergency Provider Student in an Organized Health Care Education/Training Program
DX: F10.129 Alcohol abuse with intoxication, unspecified (principal); Y90.6 Blood alcohol level of 120-199 mg/100 ml; R45.851 Suicidal ideations; Z20.822 Contact with and (suspected) exposure to COVID-19; R94.31 Abnormal electrocardiogram [ECG] [EKG]
CPT/HCPCS: 36415; 80053; 80307; 81003; 82077; 84443; 85025; 87637; 93005; 99283